=== PATIENT | male | born 1945 | race Caucasian/White ===

== ENCOUNTER 2017-03-09 09:27 | Emergency (ER) | payer MEDICARE, OTHER ==
[~2017-03-09] VITALS: Ht 177.8 cm; Wt 117.9 kg
[2017-03-09 10:30] VITALS: BP 124/90
[2017-03-09] MEDS ORDERED: TETANUS-DIPTH-ACEL PERTUSSIS 0.5ML SYRG IM ONE (10:45)
[2017-03-09] MEDS ORDERED: LIDOCAINE 1% HCL (LOCAL ANESTH.) INJ 20ML MDV IJ ONE (11:00)
[2017-03-09] MEDS ORDERED: BACITRACIN TOP OINT 1 UD PKG TOP ONE (11:45)
== END 2017-03-09 11:55 | disposition home or self-care (01) ==
LOC: ER 09:27
DX: S90.811A Abrasion, right foot, initial encounter (principal); W04.XXXA Fall while being carried or supported by other persons, initial encounter; Y93.89 Activity, other specified; Y99.8 Other external cause status; Y92.89 Other specified places as the place of occurrence of the external cause; Z23 Encounter for immunization
CPT/HCPCS: 73630; 90471; 90715

== ENCOUNTER 2017-08-23 22:03 | Inpatient (IN) | payer MEDICARE, OTHER ==
[~2017-08-23] VITALS: Ht 182.9 cm; Wt 101.6 kg
[2017-08-23] MEDS ORDERED: SODIUM CHLORIDE 0.9% 500 ML IV ONE (22:51)
[2017-08-23 23:24] LABS: Basophils # (auto) 0.1 uL; Basophils % (auto) 0.5 % (0.0-2.0); Eosinophils # (auto) 0 uL; Hematocrit 36.9 % (41.0-53.0); Hemoglobin 12.7 g/dL (13.5-17.5); Lymphocytes % (auto) 5.3 % (10.0-50.0); Mean Corpuscular Hemoglobin 31.6 pg (28.0-32.0); Mean Corpuscular Hgb Conc. 34.5 g/dL (32.0-36.0); Mean Corpuscular Volume 91.5 fL (80.0-100.0); Monocytes % (auto) 10.2 % (0.0-12.0); Neutrophils # (auto) 16.4 uL; Nucleated Red Blood Cells % 0.1 %; Platelet Count (auto) 227 10^3/uL (140-450); Red Blood Cells 4.03 10^6/uL (4.5-5.90); Red Cell Distribution Width 14.7 % (11.8-14.3); White Blood Cell 19.5 10^3/uL (4.4-10.8)
[2017-08-23 23:53] LABS: Albumin 3.2 g/dL (3.4-5.0); BUN/Creatinine Ratio 11.6; Bilirubin, Total 0.7 mg/dL (0.2-1.0); Calcium 9.2 mg/dL (8.5-10.1); Potassium 4.1 mmol/L (3.5-5.1); Total Protein 8.3 g/dL (6.4-8.2)
[2017-08-24] MEDS ORDERED: NALBUPHINE HCL 10 MG/1ml INJECTION IV ONE (01:00)
[2017-08-24] MEDS ORDERED: ONDANSETRON HCL 4 MG/2 ML VIAL IV ONE (01:00)
[2017-08-24 07:57] LABS: Alcohol, Urine < 3.0 mg/dL (0-5); Amphetamine Screen, Urine NEGATIVE (NEGATIVE); Barbiturate Scree,Urine NEGATIVE (NEGATIVE); Benzodiazephine Screen, Urine NEGATIVE (NEGATIVE); Cannabinoid Screen, Urine NEGATIVE (NEGATIVE); Cocaine Screen, Urine NEGATIVE (NEGATIVE); Opiate Scree,Urine NEGATIVE (NEGATIVE); Phencyclidine Screen, Urine NEGATIVE (NEGATIVE)
[2017-08-24] MEDS ORDERED: NALBUPHINE HCL 10 MG/1ml INJECTION IV PRN (09:00)
[2017-08-24] MEDS ORDERED: NITROGLYCERIN 0.4 MG SL TAB SL PRN (09:15)
[2017-08-24] MEDS ORDERED: DEXTROSE (50%) 50ML SYRG IV PRN (09:15)
[2017-08-24] MEDS ORDERED: DOCUSATE SOD 100 MG CAP PO PRN (09:15)
[2017-08-24] MEDS ORDERED: MORPHINE SULFATE 4 MG/ML SYR/VIAL IV PRN (09:15)
[2017-08-24] MEDS ORDERED: ONDANSETRON HCL 4 MG/2 ML VIAL IV PRN (09:15)
[2017-08-24] MEDS ORDERED: TEMAZEPAM 15 MG CAP PO PRN (09:15)
[2017-08-24] MEDS ORDERED: InsuLIN REG 1unit/0.01ml Soln (100units/ml) IV ONE (09:15)
[2017-08-24] MEDS ORDERED: ACETAMINOPHEN 325 MG TAB PO PRN (09:15)
[2017-08-24] MEDS: FAMOTIDINE 20 MG TAB PO SCH (10:17)
[2017-08-24] MEDS: MULTIPLE VITAMIN TAB PO SCH (10:18)
[2017-08-24] MEDS: SODIUM CHLORIDE 0.9% 1,000 ML IV SCH (10:18)
[2017-08-24 10:33] LABS: Urine Bacteria MOD /hpf (None Seen); Urine Blood 1+ /uL (Negative); Urine Specific Gravity 1.014 (1.001-1.035); Urine WBC 2567 /hpf (0 - 3)
[2017-08-24 10:38] LABS: Protein, Urine 114.1 mg/dL (0.0-11.9)
[2017-08-24] MEDS: InsuLIN REG 1unit/0.01ml Soln (100units/ml) SC SCH ×3 (11:30→22:10)
[2017-08-24 12:00] VITALS: BP 158/69
[2017-08-24] MEDS: ACCU-CHEK COMFORT CURVE STRIP VI SCH ×3 (12:26→22:09)
[2017-08-24] MEDS: Boost Glucose Control 8 Ounces PO SCH ×2 (12:27→19:07)
[2017-08-24 17:00] VITALS: BP 160/88
[2017-08-24] MEDS ORDERED: LABETALOL HCL 5 MG/ML ML 20ML VIAL IV PRN (17:00)
[2017-08-24] MEDS: LABETALOL HCL 5 MG/ML ML 20ML VIAL IV PRN ×2 (17:15→19:55)
[2017-08-24] MEDS ORDERED: LORazepam 2MG/ML-1ML VIAL IV PRN (18:30)
[2017-08-24 20:00] VITALS: BP 157/87
[2017-08-24] MEDS ORDERED: cefTRIAXone 1GM/10ml IVPUSH 10 ML IV ONE (21:15)
[2017-08-24 22:00] VITALS: BP 116/57
[2017-08-24] MEDS: HYDROcodone-ACET 5/325MG TAB PO PRN (23:30)
[2017-08-25] MEDS ORDERED: ACETAMINOPHEN 325 MG TAB PO PRN ×3 (04:30→04:45)
[2017-08-25] MEDS: SODIUM CHLORIDE 0.9% 1,000 ML IV SCH (06:02)
[2017-08-25] MEDS: InsuLIN REG 1unit/0.01ml Soln (100units/ml) SC SCH ×4 (06:55→22:33)
[2017-08-25] MEDS: ACCU-CHEK COMFORT CURVE STRIP VI SCH ×4 (06:55→22:00)
[2017-08-25] MEDS: LABETALOL HCL 5 MG/ML ML 20ML VIAL IV PRN (06:56)
[2017-08-25 07:10] LABS: Basophils # (auto) 0 uL; Basophils % (auto) 0.2 % (0.0-2.0); Eosinophils # (auto) 0 uL; Hematocrit 31.7 % (41.0-53.0); Hemoglobin 10.9 g/dL (13.5-17.5); Lymphocytes # (auto) 0.5 uL; Lymphocytes % (auto) 4.2 % (10.0-50.0); Mean Corpuscular Hemoglobin 31.4 pg (28.0-32.0); Mean Corpuscular Hgb Conc. 34.3 g/dL (32.0-36.0); Mean Corpuscular Volume 91.4 fL (80.0-100.0); Monocytes # (auto) 1.4 uL; Monocytes % (auto) 10.9 % (0.0-12.0); Neutrophils # (auto) 11.1 uL; Neutrophils % (auto) 84.7 % (37.0-80.0); Platelet Count (auto) 187 10^3/uL (140-450); Red Blood Cells 3.46 10^6/uL (4.5-5.90); Red Cell Distribution Width 14.3 % (11.8-14.3); White Blood Cell 13.1 10^3/uL (4.4-10.8)
[2017-08-25 07:42] LABS: Albumin 2.5 g/dL (3.4-5.0); BUN/Creatinine Ratio 12.5; Bilirubin, Total 0.5 mg/dL (0.2-1.0); Calcium 8.4 mg/dL (8.5-10.1); Phosphorus 3.3 mg/dL (2.5-4.90); Total Protein 7.1 g/dL (6.4-8.2); Uric Acid 8.3 mg/dL (3.5-7.2)
[2017-08-25 09:02] VITALS: BP 129/70
[2017-08-25] MEDS: FAMOTIDINE 20 MG TAB PO SCH (10:00)
[2017-08-25] MEDS: Boost Glucose Control 8 Ounces PO SCH ×3 (11:11→18:18)
[2017-08-25] MEDS: SODIUM BICARBONATE 50ML VIAL 50 ML in SOD CHL 0.45% 1,000 ML IV SCH ×2 (11:12→18:19)
[2017-08-25] MEDS: MULTIPLE VITAMIN TAB PO SCH (11:12)
[2017-08-25] MEDS: cefTRIAXone 1GM/10ml IVPUSH 10 ML IV SCH (11:12)
[2017-08-25 12:45] VITALS: BP 145/77
[2017-08-25 16:39] VITALS: BP 165/73
[2017-08-25] MEDS: TAMSULOSIN HYDROCHLORIDE 0.4 MG CAP PO SCH (17:05)
[2017-08-25] MEDS: HYDROcodone-ACET 5/325MG TAB PO PRN (22:33)
[2017-08-26] MEDS: SODIUM BICARBONATE 50ML VIAL 50 ML in SOD CHL 0.45% 1,000 ML IV SCH ×3 (05:53→20:06)
[2017-08-26] MEDS: ACCU-CHEK COMFORT CURVE STRIP VI SCH ×4 (05:53→21:24)
[2017-08-26] MEDS: InsuLIN REG 1unit/0.01ml Soln (100units/ml) SC SCH ×4 (06:04→21:24)
[2017-08-26 09:00] VITALS: BP 151/67
[2017-08-26 09:55] LABS: INR 1.05 (0.9-1.15); Prothrombin Time 11.4 sec (9.37-12.3)
[2017-08-26] MEDS: Boost Glucose Control 8 Ounces PO SCH ×3 (10:14→17:23)
[2017-08-26] MEDS: cefTRIAXone 1GM/10ml IVPUSH 10 ML IV SCH (10:15)
[2017-08-26] MEDS: MULTIPLE VITAMIN TAB PO SCH (10:15)
[2017-08-26] MEDS: amLODIPine BESYLATE 5 MG TAB PO SCH (10:16)
[2017-08-26] MEDS: FAMOTIDINE 20 MG TAB PO SCH (10:16)
[2017-08-26 13:00] VITALS: BP 166/79
[2017-08-26 17:00] VITALS: BP 161/86
[2017-08-26] MEDS: TAMSULOSIN HYDROCHLORIDE 0.4 MG CAP PO SCH (17:23)
[2017-08-26] MEDS: HYDROcodone-ACET 5/325MG TAB PO PRN (17:25)
[2017-08-26] MEDS: LABETALOL HCL 5 MG/ML ML 20ML VIAL IV PRN (17:57)
[2017-08-26 19:35] LABS: Protein, CSF 48.2 mg/dL (15-45)
[2017-08-26 20:55] LABS: CSF White Blood Cells 0 CUMM (0-5)
[2017-08-26 22:00] VITALS: BP 137/89
[2017-08-27] MEDS: SODIUM BICARBONATE 50ML VIAL 50 ML in SOD CHL 0.45% 1,000 ML IV SCH ×3 (00:54→20:06)
[2017-08-27 05:30] VITALS: BP 149/78
[2017-08-27] MEDS: ACCU-CHEK COMFORT CURVE STRIP VI SCH ×4 (06:16→22:00)
[2017-08-27] MEDS: InsuLIN REG 1unit/0.01ml Soln (100units/ml) SC SCH ×4 (06:20→22:00)
[2017-08-27 07:12] LABS: Basophils # (auto) 0 uL; Basophils % (auto) 0.4 % (0.0-2.0); Eosinophils # (auto) 0.2 uL; Eosinophils % (auto) 1.8 % (0.0-7.0); Hematocrit 33.2 % (41.0-53.0); Hemoglobin 11.5 g/dL (13.5-17.5); Lymphocytes % (auto) 9.5 % (10.0-50.0); Mean Corpuscular Hemoglobin 31.5 pg (28.0-32.0); Mean Corpuscular Hgb Conc. 34.8 g/dL (32.0-36.0); Mean Corpuscular Volume 90.5 fL (80.0-100.0); Monocytes % (auto) 9.5 % (0.0-12.0); Neutrophils # (auto) 8.1 uL; Neutrophils % (auto) 78.8 % (37.0-80.0); Platelet Count (auto) 228 10^3/uL (140-450); Red Blood Cells 3.67 10^6/uL (4.5-5.90); Red Cell Distribution Width 14.2 % (11.8-14.3); White Blood Cell 10.3 10^3/uL (4.4-10.8)
[2017-08-27 07:30] LABS: Albumin 2.4 g/dL (3.4-5.0); BUN/Creatinine Ratio 15.6; Bilirubin, Total 0.4 mg/dL (0.2-1.0); Calcium 8.7 mg/dL (8.5-10.1); Total Protein 7.3 g/dL (6.4-8.2)
[2017-08-27 09:00] VITALS: BP 119/48
[2017-08-27] MEDS: FAMOTIDINE 20 MG TAB PO SCH (09:21)
[2017-08-27] MEDS: MULTIPLE VITAMIN TAB PO SCH (09:21)
[2017-08-27] MEDS: amLODIPine BESYLATE 5 MG TAB PO SCH (09:23)
[2017-08-27] MEDS: cefTRIAXone 1GM/10ml IVPUSH 10 ML IV SCH (09:26)
[2017-08-27] MEDS: Boost Glucose Control 8 Ounces PO SCH ×3 (09:27→18:00)
[2017-08-27 13:00] VITALS: BP 144/84
[2017-08-27 17:00] VITALS: BP 149/86
[2017-08-27] MEDS: TAMSULOSIN HYDROCHLORIDE 0.4 MG CAP PO SCH (17:53)
[2017-08-27 23:36] VITALS: BP 131/63
[2017-08-28 04:49] VITALS: BP 128/80
[2017-08-28] MEDS: SODIUM BICARBONATE 50ML VIAL 50 ML in SOD CHL 0.45% 1,000 ML IV SCH ×2 (05:13→14:06)
[2017-08-28] MEDS: ACCU-CHEK COMFORT CURVE STRIP VI SCH ×2 (06:02→11:41)
[2017-08-28] MEDS: InsuLIN REG 1unit/0.01ml Soln (100units/ml) SC SCH ×2 (06:07→11:42)
[2017-08-28 08:00] VITALS: BP 139/81
[2017-08-28] MEDS: Boost Glucose Control 8 Ounces PO SCH ×2 (08:00→12:00)
[2017-08-28] MEDS: cefTRIAXone 1GM/10ml IVPUSH 10 ML IV SCH (09:00)
[2017-08-28] MEDS: MULTIPLE VITAMIN TAB PO SCH (09:58)
[2017-08-28] MEDS: FAMOTIDINE 20 MG TAB PO SCH (09:58)
[2017-08-28] MEDS: amLODIPine BESYLATE 5 MG TAB PO SCH (09:59)
[2017-08-28 11:32] VITALS: BP 139/81
[2017-08-28 12:00] VITALS: BP 161/87
[2017-08-28] MEDS ORDERED: INSULIN LANTUS (GLARGINE) 1 /0.01ml (100units/ml) SC SCH (22:00)
== END 2017-08-28 14:55 | disposition home health service (06) | DRG 871 ==
LOC: ER 22:03 → EDBD 22:03 → TELE 22:04 → TELE-EAST 08-24 11:09
PROVIDERS: ADMIT Internal Medicine; ATTEND Internal Medicine Pulmonary Disease
DX: A41.9 Sepsis, unspecified organism (principal); E11.10 Type 2 diabetes mellitus with ketoacidosis without coma; N17.0 Acute kidney failure with tubular necrosis; G93.41 Metabolic encephalopathy; E44.0 Moderate protein-calorie malnutrition; I13.0 Hypertensive heart and chronic kidney disease with heart failure and stage 1 through stage 4 chronic kidney disease, or unspecified chronic kidney disease; E87.1 Hypo-osmolality and hyponatremia; N39.0 Urinary tract infection, site not specified; N13.30 Unspecified hydronephrosis; N18.4 Chronic kidney disease, stage 4 (severe); D63.8 Anemia in other chronic diseases classified elsewhere; E11.21 Type 2 diabetes mellitus with diabetic nephropathy; E11.22 Type 2 diabetes mellitus with diabetic chronic kidney disease; E86.9 Volume depletion, unspecified; N40.0 Benign prostatic hyperplasia without lower urinary tract symptoms; E66.9 Obesity, unspecified; I50.9 Heart failure, unspecified; F17.200 Nicotine dependence, unspecified, uncomplicated; Z79.899 Other long term (current) drug therapy; Z82.3 Family history of stroke; Z82.49 Family history of ischemic heart disease and other diseases of the circulatory system; Z68.30 Body mass index [BMI] 30.0-30.9, adult
CPT/HCPCS: 36415; 36600; 70450; 70551; 71045; 76775; 80053; 80307; 81001; 82010; 82306; 82570; 82805; 82945; 82962; 83036; 83605; 83735; 83880; 83970; 84100; 84154; 84156; 84157; 84300; 84443; 84484; 84550; 85025; 85610; 85652; 86038; 87040; 87070; 87086; 87088; 87186; 87205; 87529; 87899; 89051; 93005; 93306; 94761; 95819; 96361; 96374; 96375; J1815; J2405

== ENCOUNTER → 2017-11-12 | Outpatient (CLI) | payer MEDICARE, OTHER ==
[2017-11-12 11:09] LABS: Basophils # (auto) 0.1 uL; Basophils % (auto) 0.9 % (0.0-2.0); Eosinophils # (auto) 0.2 uL; Eosinophils % (auto) 2.2 % (0.0-7.0); Hematocrit 38.6 % (41.0-53.0); Hemoglobin 13.3 g/dL (13.5-17.5); Lymphocytes # (auto) 2.1 uL; Lymphocytes % (auto) 25.3 % (10.0-50.0); Mean Corpuscular Hemoglobin 31.8 pg (28.0-32.0); Mean Corpuscular Hgb Conc. 34.5 g/dL (32.0-36.0); Mean Corpuscular Volume 92.4 fL (80.0-100.0); Monocytes # (auto) 0.7 uL; Monocytes % (auto) 8.8 % (0.0-12.0); Neutrophils # (auto) 5.1 uL; Neutrophils % (auto) 62.8 % (37.0-80.0); Platelet Count (auto) 208 10^3/uL (140-450); Red Blood Cells 4.18 10^6/uL (4.5-5.90); Red Cell Distribution Width 14.5 % (11.8-14.3); White Blood Cell 8.1 10^3/uL (4.4-10.8)
[2017-11-12 11:18] LABS: Urine Bacteria FEW /hpf (None Seen); Urine Blood Negative /uL (Negative); Urine WBC 20 /hpf (0 - 3)
[2017-11-12 11:36] LABS: Albumin 3.7 g/dL (3.4-5.0); BUN/Creatinine Ratio 15.4; Bilirubin, Total 0.4 mg/dL (0.2-1.0); Calcium 9.2 mg/dL (8.5-10.1); Potassium 4.6 mmol/L (3.5-5.1); Total Protein 7.8 g/dL (6.4-8.2)
== END | disposition home or self-care (01) ==
LOC: LAB 10:44
PROVIDERS: ATTEND Nurse Practitioner
DX: E11.22 Type 2 diabetes mellitus with diabetic chronic kidney disease (principal); I13.0 Hypertensive heart and chronic kidney disease with heart failure and stage 1 through stage 4 chronic kidney disease, or unspecified chronic kidney disease; N18.4 Chronic kidney disease, stage 4 (severe); Z79.899 Other long term (current) drug therapy
CPT/HCPCS: 36415; 80053; 80061; 81001; 82043; 82306; 83036; 85025

== ENCOUNTER 2018-01-03 07:45 | Inpatient (IN) | payer MEDICARE, OTHER ==
[2017-12-30 10:29] LABS: Urine Bacteria NONE SEEN /hpf (None Seen); Urine Blood Negative /uL (Negative); Urine Specific Gravity 1.012 (1.001-1.035); Urine WBC 30 /hpf (0 - 3)
[2017-12-30 10:31] LABS: Albumin 3.6 g/dL (3.4-5.0); BUN/Creatinine Ratio 17.9; Calcium 8.7 mg/dL (8.5-10.1); Potassium 4.2 mmol/L (3.5-5.1)
[2017-12-30 10:42] LABS: Bilirubin, Total 0.4 mg/dL (0.2-1.0); INR 1.01 (0.9-1.15); Prothrombin Time 10.8 sec (9.27-12.13); Total Protein 7.8 g/dL (6.4-8.2)
[2017-12-30 10:56] LABS: Basophils # (auto) 0.1 uL; Basophils % (auto) 0.6 % (0.0-2.0); Eosinophils # (auto) 0.2 uL; Eosinophils % (auto) 2.1 % (0.0-7.0); Hematocrit 40.2 % (41.0-53.0); Lymphocytes # (auto) 1.8 uL; Lymphocytes % (auto) 20.4 % (10.0-50.0); Mean Corpuscular Hemoglobin 31.3 pg (28.0-32.0); Mean Corpuscular Hgb Conc. 34.7 g/dL (32.0-36.0); Mean Corpuscular Volume 90.3 fL (80.0-100.0); Monocytes # (auto) 0.8 uL; Neutrophils # (auto) 5.9 uL; Neutrophils % (auto) 67.9 % (37.0-80.0); Platelet Count (auto) 199 10^3/uL (140-450); Red Blood Cells 4.46 10^6/uL (4.5-5.90); Red Cell Distribution Width 13.1 % (11.8-14.3); White Blood Cell 8.8 10^3/uL (4.4-10.8)
[~2018-01-03] VITALS: Ht 177.8 cm; Wt 102.3 kg
[~2018-01-03 07:45] MED LIST: AML5T PO; INSDRIP SC; INSLANTI SC; TAM04C PO
[2018-01-03] MEDS ORDERED: fentaNYL CITRATE 100 MCG/2 ML VL ONE (10:26)
[2018-01-03] MEDS ORDERED: PROPOFOL 10 MG/ML 20 ML IV ONE (10:27)
[2018-01-03] MEDS ORDERED: ROCURONIUM 10MG/ML 10ML VIAL IV ONE (10:30)
[2018-01-03] MEDS ORDERED: METHYLENE BLUE 0.5% 5MG/ML 10ml AMP IV ONE (11:01)
[2018-01-03] MEDS ORDERED: hydrALAZINE HCL 20 MG/ML VL IV PRN (12:15)
[2018-01-03] MEDS ORDERED: ePHEDrine SULFATE 50 MG/ML AMP IV PRN (12:15)
[2018-01-03] MEDS ORDERED: ONDANSETRON HCL 4 MG/2 ML VIAL IV ONE (12:15)
[2018-01-03] MEDS ORDERED: HYDROmorphone HCL 2 MG/ML VL IV PRN (12:15)
[2018-01-03] MEDS ORDERED: NITROGLYCERIN 0.4 MG SL TAB SL PRN (14:45)
[2018-01-03] MEDS ORDERED: MORPHINE SULFATE 4 MG/ML SYR/VIAL IV PRN (14:45)
[2018-01-03 17:49] VITALS: BP 139/71
[2018-01-03 20:00] VITALS: BP 152/85
[2018-01-03 22:00] VITALS: BP 152/85
[2018-01-04 05:12] VITALS: BP 123/60
[2018-01-04 08:00] VITALS: BP 156/75
[2018-01-04] MEDS ORDERED: ceFAZolin 1GM VL IV ONE (10:20)
[2018-01-04 12:00] VITALS: BP 134/72
[2018-01-04 16:00] VITALS: BP 153/84
[2018-01-04 17:41] VITALS: BP 153/84
== END 2018-01-04 19:10 | disposition home or self-care (01) | DRG 713 ==
LOC: SUR 07:45 → CENTRAL 07:46
PROVIDERS: ADMIT Urology; ATTEND Urology
PROC: 0VB08ZZ Excision of Prostate, Via Natural or Artificial Opening Endoscopic (ICD-10-PCS; principal; 2018-01-03 10:20)
DX: N40.1 Benign prostatic hyperplasia with lower urinary tract symptoms (principal); N39.0 Urinary tract infection, site not specified; R33.8 Other retention of urine
CPT/HCPCS: 36415; 80053; 81001; 82962; 85025; 85610; 85730; J0690; J2704

== ENCOUNTER → 2018-04-18 | Outpatient (CLI) | payer MEDICARE, OTHER ==
[2018-04-18 10:10] LABS: Basophils # (auto) 0 uL; Basophils % (auto) 0.5 % (0.0-2.0); Eosinophils # (auto) 0.2 uL; Eosinophils % (auto) 2.2 % (0.0-7.0); Hematocrit 42.3 % (41.0-53.0); Hemoglobin 14.9 g/dL (13.5-17.5); Lymphocytes # (auto) 1.7 uL; Lymphocytes % (auto) 21.5 % (10.0-50.0); Mean Corpuscular Hemoglobin 32.1 pg (28.0-32.0); Mean Corpuscular Hgb Conc. 35.1 g/dL (32.0-36.0); Mean Corpuscular Volume 91.3 fL (80.0-100.0); Monocytes # (auto) 0.7 uL; Monocytes % (auto) 9.3 % (0.0-12.0); Neutrophils # (auto) 5.2 uL; Neutrophils % (auto) 66.5 % (37.0-80.0); Nucleated Red Blood Cells % 0.2 %; Platelet Count (auto) 165 10^3/uL (140-450); Red Blood Cells 4.63 10^6/uL (4.5-5.90); Red Cell Distribution Width 14.2 % (11.8-14.3); White Blood Cell 7.9 10^3/uL (4.4-10.8)
[2018-04-18 10:25] LABS: Urine Bacteria MOD /hpf (None Seen); Urine Blood Negative /uL (Negative); Urine Specific Gravity 1.012 (1.001-1.035); Urine WBC 44 /hpf (0 - 3); Urine WBC Clumps PRESENT /hpf (None Seen)
[2018-04-18 10:34] LABS: Albumin 3.6 g/dL (3.4-5.0); Calcium 9.4 mg/dL (8.5-10.1); Potassium 4.9 mmol/L (3.5-5.1)
[2018-04-18 10:39] LABS: BUN/Creatinine Ratio 14.4; Bilirubin, Total 0.6 mg/dL (0.2-1.0)
== END | disposition home or self-care (01) ==
LOC: LAB 08:31
PROVIDERS: ATTEND Nurse Practitioner
DX: E11.9 Type 2 diabetes mellitus without complications (principal); N40.0 Benign prostatic hyperplasia without lower urinary tract symptoms; R97.20 Elevated prostate specific antigen [PSA]
CPT/HCPCS: 36415; 80053; 80061; 81001; 82043; 83036; 85025

== ENCOUNTER → 2018-07-18 | Outpatient (CLI) | payer MEDICARE, OTHER | END | disposition home or self-care (01) | LOC: LAB 09:18 | PROVIDERS: ATTEND Urology | DX: N40.0 Benign prostatic hyperplasia without lower urinary tract symptoms (principal); R97.20 Elevated prostate specific antigen [PSA] | CPT/HCPCS: 84153; 84154 ==

== ENCOUNTER → 2018-10-13 | Outpatient (CLI) | payer MEDICARE, OTHER ==
[2018-10-13 13:34] LABS: Urine Bacteria NONE SEEN /hpf (None Seen); Urine Blood Negative /uL (Negative); Urine Specific Gravity 1.016 (1.001-1.035); Urine Sperm PRESENT /hpf (None Seen); Urine WBC 1 /hpf (0 - 3)
[2018-10-13 13:41] LABS: Basophils # (auto) 0.1 uL; Basophils % (auto) 0.7 % (0.0-2.0); Eosinophils # (auto) 0.2 uL; Eosinophils % (auto) 2.3 % (0.0-7.0); Hematocrit 41.3 % (41.0-53.0); Hemoglobin 14.4 g/dL (13.5-17.5); Lymphocytes # (auto) 1.7 uL; Lymphocytes % (auto) 21.9 % (10.0-50.0); Mean Corpuscular Hemoglobin 31.5 pg (28.0-32.0); Mean Corpuscular Hgb Conc. 34.9 g/dL (32.0-36.0); Mean Corpuscular Volume 90.1 fL (80.0-100.0); Monocytes # (auto) 0.7 uL; Monocytes % (auto) 8.9 % (0.0-12.0); Neutrophils # (auto) 5.2 uL; Neutrophils % (auto) 66.2 % (37.0-80.0); Nucleated Red Blood Cells % 0.1 %; Platelet Count (auto) 164 10^3/uL (140-450); Red Blood Cells 4.58 10^6/uL (4.5-5.90); Red Cell Distribution Width 13.9 % (11.8-14.3); White Blood Cell 7.9 10^3/uL (4.4-10.8)
[2018-10-13 14:17] LABS: Albumin 3.6 g/dL (3.4-5.0); Calcium 8.7 mg/dL (8.5-10.1)
[2018-10-13 14:21] LABS: BUN/Creatinine Ratio 12.8; Bilirubin, Total 0.6 mg/dL (0.2-1.0); Total Protein 7.4 g/dL (6.4-8.2)
== END | disposition home or self-care (01) ==
LOC: LAB 13:03
PROVIDERS: ATTEND Nurse Practitioner
DX: E78.5 Hyperlipidemia, unspecified (principal); E11.29 Type 2 diabetes mellitus with other diabetic kidney complication
CPT/HCPCS: 36415; 80053; 80061; 81001; 82043; 83036; 84443; 85025

== ENCOUNTER → 2019-02-17 | Outpatient (CLI) | payer MEDICARE, OTHER ==
[2019-02-17 09:28] LABS: Basophils # (auto) 0.1 uL; Basophils % (auto) 0.8 % (0.0-2.0); Eosinophils # (auto) 0.2 uL; Eosinophils % (auto) 3.2 % (0.0-7.0); Hematocrit 42.9 % (41.0-53.0); Lymphocytes # (auto) 1.9 uL; Lymphocytes % (auto) 25.9 % (10.0-50.0); Mean Corpuscular Hemoglobin 31.9 pg (28.0-32.0); Mean Corpuscular Hgb Conc. 34.9 g/dL (32.0-36.0); Mean Corpuscular Volume 91.4 fL (80.0-100.0); Monocytes # (auto) 0.7 uL; Neutrophils # (auto) 4.5 uL; Neutrophils % (auto) 61.1 % (37.0-80.0); Nucleated Red Blood Cells % 0.1 %; Platelet Count (auto) 159 10^3/uL (140-450); Red Blood Cells 4.69 10^6/uL (4.5-5.90); Red Cell Distribution Width 14.5 % (11.8-14.3); White Blood Cell 7.4 10^3/uL (4.4-10.8)
[2019-02-17 10:44] LABS: Cholesterol 165 mg/dL (< 200); HDL Cholesterol 33 mg/dL (40-59); LDL Cholesterol 117 mg/dL (< 100); Triglycerides 124 mg/dL (< 150)
== END | disposition home or self-care (01) ==
LOC: LAB 09:01
PROVIDERS: ATTEND Nurse Practitioner
DX: E11.9 Type 2 diabetes mellitus without complications (principal); E78.5 Hyperlipidemia, unspecified
CPT/HCPCS: 36415; 80061; 83036; 85025

== ENCOUNTER → 2019-06-16 | Outpatient (CLI) | payer MEDICARE, OTHER ==
[2019-06-16 09:39] LABS: Basophils # (auto) 0.1 uL; Basophils % (auto) 0.7 % (0.0-2.0); Eosinophils # (auto) 0.2 uL; Eosinophils % (auto) 2.1 % (0.0-7.0); Hematocrit 47.7 % (41.0-53.0); Hemoglobin 16.7 g/dL (13.5-17.5); Lymphocytes # (auto) 1.9 uL; Lymphocytes % (auto) 22.1 % (10.0-50.0); Mean Corpuscular Hemoglobin 31.4 pg (28.0-32.0); Mean Corpuscular Hgb Conc. 35.1 g/dL (32.0-36.0); Mean Corpuscular Volume 89.5 fL (80.0-100.0); Monocytes # (auto) 0.7 uL; Monocytes % (auto) 8.1 % (0.0-12.0); Neutrophils # (auto) 5.8 uL; Nucleated Red Blood Cells % 0.5 %; Platelet Count (auto) 174 10^3/uL (140-450); Red Blood Cells 5.32 10^6/uL (4.5-5.90); Red Cell Distribution Width 14.2 % (11.8-14.3); White Blood Cell 8.6 10^3/uL (4.4-10.8)
[2019-06-16 09:47] LABS: Urine Bacteria NONE SEEN /hpf (None Seen); Urine Blood TRACE /uL (Negative); Urine Specific Gravity 1.019 (1.001-1.035); Urine WBC 1 /hpf (0 - 3)
[2019-06-16 10:15] LABS: Albumin 3.7 g/dL (3.4-5.0); Calcium 9.1 mg/dL (8.5-10.1); Potassium 4.2 mmol/L (3.5-5.1)
[2019-06-16 10:21] LABS: BUN/Creatinine Ratio 16.7; Bilirubin, Total 0.7 mg/dL (0.2-1.0); Total Protein 7.8 g/dL (6.4-8.2)
== END | disposition home or self-care (01) ==
LOC: LAB 08:58
PROVIDERS: ATTEND Nurse Practitioner
DX: E78.5 Hyperlipidemia, unspecified (principal); E11.9 Type 2 diabetes mellitus without complications
CPT/HCPCS: 36415; 80053; 80061; 81001; 82043; 83036; 84443; 85025

== ENCOUNTER → 2020-02-21 | Outpatient (CLI) | payer MEDICARE, OTHER ==
[2020-02-21 10:28] LABS: Urine Bacteria NONE SEEN /hpf (None Seen); Urine Blood 1+ /uL (Negative); Urine Specific Gravity 1.019 (1.001-1.035); Urine WBC 1 /hpf (0 - 3)
[2020-02-21 10:30] LABS: Basophils # (auto) 0.1 10 ^3/uL (0-0.2); Basophils % (auto) 0.8 % (0.0-2.0); Eosinophils # (auto) 0.2 10 ^3/uL (0-0.8); Eosinophils % (auto) 2.2 % (0.0-7.0); Hematocrit 45.1 % (41.0-53.0); Hemoglobin 15.4 g/dL (13.5-17.5); Lymphocytes # (auto) 1.9 10 ^3/uL (0.4-5.4); Lymphocytes % (auto) 22.3 % (10.0-50.0); Mean Corpuscular Hemoglobin 30.8 pg (28.0-32.0); Mean Corpuscular Hgb Conc. 34.2 g/dL (32.0-36.0); Mean Corpuscular Volume 90.1 fL (80.0-100.0); Monocytes # (auto) 0.9 10 ^3/uL (0-1.3); Monocytes % (auto) 9.8 % (0.0-12.0); Neutrophils # (auto) 5.6 10 ^3/uL (1.6-8.6); Neutrophils % (auto) 64.9 % (37.0-80.0); Nucleated Red Blood Cells % 0.3 %; Platelet Count (auto) 165 10^3/uL (140-450); Red Cell Distribution Width 14.4 % (11.8-14.3); White Blood Cell 8.7 10^3/uL (4.4-10.8)
[2020-02-21 10:42] LABS: Albumin 3.3 g/dL (3.4-5.0); Potassium 4.1 mmol/L (3.5-5.1)
[2020-02-21 10:46] LABS: BUN/Creatinine Ratio 13.3; Bilirubin, Total 0.6 mg/dL (0.2-1.0); Total Protein 7.3 g/dL (6.4-8.2)
== END | disposition home or self-care (01) ==
LOC: LAB 10:08
PROVIDERS: ATTEND Family Medicine
DX: I13.0 Hypertensive heart and chronic kidney disease with heart failure and stage 1 through stage 4 chronic kidney disease, or unspecified chronic kidney disease (principal); I50.9 Heart failure, unspecified; N18.4 Chronic kidney disease, stage 4 (severe); N40.0 Benign prostatic hyperplasia without lower urinary tract symptoms; R97.20 Elevated prostate specific antigen [PSA]
CPT/HCPCS: 36415; 80053; 80061; 81001; 83036; 84153; 84154; 84443; 85025

== ENCOUNTER → 2020-06-10 | Outpatient (CLI) | payer MEDICARE, OTHER ==
[2020-06-10 13:47] LABS: Urine Bacteria NONE SEEN /hpf (None Seen); Urine Blood 1+ /uL (Negative); Urine Hyaline Cast FEW /lpf (0 - 2); Urine Mucus FEW (None Seen); Urine Specific Gravity 1.024 (1.001-1.035); Urine WBC 1 /hpf (0 - 3)
== END | disposition home or self-care (01) ==
LOC: LAB 09:59
PROVIDERS: ATTEND Nurse Practitioner Family
DX: Z20.828 Contact with and (suspected) exposure to other viral communicable diseases (principal)
CPT/HCPCS: 81001; 87086; C9803; U0003

== ENCOUNTER 2020-06-13 15:37 | Emergency (ER) | payer MEDICARE, OTHER ==
[~2020-06-13] VITALS: Ht 177.8 cm; Wt 116.6 kg
[2020-06-13] MEDS ORDERED: SODIUM CHLORIDE 0.9% 500 ML IV ONE ×2 (17:15→18:30)
[2020-06-13 17:28] LABS: Basophils # (auto) 0.1 10 ^3/uL (0-0.2); Eosinophils # (auto) 0 10 ^3/uL (0-0.8); Eosinophils % (auto) 0.2 % (0.0-7.0); Hematocrit 44.1 % (41.0-53.0); Hemoglobin 15.8 g/dL (13.5-17.5); Lymphocytes # (auto) 0.8 10 ^3/uL (0.4-5.4); Lymphocytes % (auto) 15.6 % (10.0-50.0); Mean Corpuscular Hemoglobin 31.9 pg (28.0-32.0); Mean Corpuscular Hgb Conc. 35.8 g/dL (32.0-36.0); Mean Corpuscular Volume 88.9 fL (80.0-100.0); Monocytes # (auto) 0.8 10 ^3/uL (0-1.3); Neutrophils # (auto) 3.5 10 ^3/uL (1.6-8.6); Neutrophils % (auto) 68.2 % (37.0-80.0); Nucleated Red Blood Cells % 0.5 %; Platelet Count (auto) 105 10^3/uL (140-450); Red Blood Cells 4.96 10^6/uL (4.5-5.90); Red Cell Distribution Width 14.1 % (11.8-14.3); White Blood Cell 5.2 10^3/uL (4.4-10.8)
[2020-06-13 17:31] LABS: Albumin 3.5 g/dL (3.4-5.0); Anion Gap 10 (5-15); Blood Urea Nitrogen 39 mg/dL (7-18); Calcium 8.2 mg/dL (8.5-10.1); Carbon Dioxide 24 mmol/L (21-32); Chloride 92 mmol/L (98-107); Glucose 175 mg/dL (74-106); Potassium 3.8 mmol/L (3.5-5.1); Sodium 126 mmol/L (136-145)
[2020-06-13 17:37] LABS: Alanine Aminotransferase 36 U/L (16-61); Alkaline Phosphatase 76 U/L (45-117); Aspartate Aminotransferase 40 U/L (15-37); BUN/Creatinine Ratio 17.2; Bilirubin, Total 0.9 mg/dL (0.2-1.0); GFR African American 37 mL/min; GFR Non-African American 30 mL/min; Total Protein 8.1 g/dL (6.4-8.2)
[2020-06-13 18:48] LABS: Urine Bacteria NONE SEEN /hpf (None Seen); Urine Blood 1+ /uL (Negative); Urine Specific Gravity 1.022 (1.001-1.035); Urine WBC 1 /hpf (0 - 3)
[2020-06-13 19:30] VITALS: BP 142/76
[2020-06-13] MEDS ORDERED: ACETAMINOPHEN 500 MG TAB PO ONE (19:45)
== END 2020-06-13 21:00 | disposition home or self-care (01) ==
LOC: ER 15:37
DX: G47.00 Insomnia, unspecified (principal); E86.0 Dehydration; E11.22 Type 2 diabetes mellitus with diabetic chronic kidney disease; I12.9 Hypertensive chronic kidney disease with stage 1 through stage 4 chronic kidney disease, or unspecified chronic kidney disease; N18.9 Chronic kidney disease, unspecified
CPT/HCPCS: 36415; 71045; 80053; 81001; 84484; 85025; 96360; 96361; 99284; J7030

== ENCOUNTER 2020-06-16 10:02 | Inpatient (IN) | payer MEDICARE, OTHER ==
[~2020-06-16] VITALS: Ht 177.8 cm; Wt 103.0 kg
[2020-06-16 11:59] LABS: Basophils # (auto) 0 10 ^3/uL (0-0.2); Basophils % (auto) 0.2 % (0.0-2.0); Eosinophils # (auto) 0 10 ^3/uL (0-0.8); Hematocrit 43.7 % (41.0-53.0); Hemoglobin 15.5 g/dL (13.5-17.5); Lymphocytes # (auto) 0.4 10 ^3/uL (0.4-5.4); Lymphocytes % (auto) 5.8 % (10.0-50.0); Mean Corpuscular Hemoglobin 31.5 pg (28.0-32.0); Mean Corpuscular Hgb Conc. 35.5 g/dL (32.0-36.0); Mean Corpuscular Volume 88.6 fL (80.0-100.0); Monocytes # (auto) 0.5 10 ^3/uL (0-1.3); Monocytes % (auto) 8.8 % (0.0-12.0); Neutrophils # (auto) 5.3 10 ^3/uL (1.6-8.6); Neutrophils % (auto) 85.2 % (37.0-80.0); Nucleated Red Blood Cells % 0.3 %; Platelet Count (auto) 128 10^3/uL (140-450); Red Blood Cells 4.93 10^6/uL (4.5-5.90); White Blood Cell 6.2 10^3/uL (4.4-10.8)
[2020-06-16 12:19] LABS: Chloride 94 mmol/L (98-107); Lactic Acid w/Reflex 2.7 mmol/L (0.4-2.0); Potassium 3.9 mmol/L (3.5-5.1); Sodium 126 mmol/L (136-145)
[2020-06-16 12:30] LABS: Alanine Aminotransferase 51 U/L (16-61); Alkaline Phosphatase 67 U/L (45-117); Aspartate Aminotransferase 58 U/L (15-37); BUN/Creatinine Ratio 21.1; Blood Urea Nitrogen 41 mg/dL (7-18); Carbon Dioxide 15 mmol/L (21-32); GFR African American 44 mL/min; GFR Non-African American 36 mL/min; Total Protein 7.7 g/dL (6.4-8.2)
[2020-06-16 12:36] LABS: Glucose 303 mg/dL (74-106)
[2020-06-16 12:40] LABS: Anion Gap 17 (5-15)
[2020-06-16] MEDS ORDERED: DEXTROSE (50%) 50ML SYRG IV PRN (13:45)
[2020-06-16] MEDS ORDERED: INSULIN LANTUS (GLARGINE) 1 /0.01ml (100units/ml) SC ONE (13:45)
[2020-06-16] MEDS ORDERED: ACETAMINOPHEN 325 MG TAB PO ONE (13:45)
[2020-06-16] MEDS: ACCU-CHEK COMFORT CURVE STRIP VI SCH ×6 (14:29→22:40)
[2020-06-16] MEDS ORDERED: NITROGLYCERIN 0.4 MG SL TAB SL PRN (15:15)
[2020-06-16] MEDS ORDERED: MORPHINE SULF INJ 2 MG/ML SYRINGE 1ML IV PRN ×2 (15:15)
[2020-06-16] MEDS ORDERED: ONDANSETRON HCL 4 MG/2 ML VIAL IV PRN (15:15)
[2020-06-16] MEDS ORDERED: REMDESIVIR PER PHARMACY 0 ML IV SCH (15:15)
[2020-06-16] MEDS: InsuLIN R (HUMAN) 100 UNITS in SODIUM CHL 0.9% 99 ML IV SCH ×2 (16:22→18:05)
[2020-06-16] MEDS ORDERED: REMDESIVIR 200 MG in NS 210ml LOADING DOSE ADULT IV ONE (17:00)
[2020-06-16] MEDS ORDERED: SODIUM CHLORIDE 0.9% 500 ML IV ONE (18:15)
[2020-06-16] MEDS: BUDESONIDE (INHALATION) 180 MCG IH IN SCH (19:03)
[2020-06-16] MEDS ORDERED: SODIUM CHLORIDE 0.9% 1,000 ML IV SCH (19:45)
[2020-06-16] MEDS: ALBUTEROL SULF HFA 90MCG INH 200DOSE IN PRN (19:49)
[2020-06-16] MEDS: SODIUM CHLORIDE 0.9% 1,000 ML IV SCH (19:54)
[2020-06-16 20:53] LABS: BUN/Creatinine Ratio 18.4; Calcium 7.3 mg/dL (8.5-10.1); Potassium 3.3 mmol/L (3.5-5.1)
[2020-06-16 21:48] LABS: Magnesium 2.7 mg/dL (1.6-2.6)
[2020-06-16 21:56] LABS: CRP High Sensitivity 11.6 mg/dL (< 0.3)
[2020-06-16] MEDS: BUDESONIDE (INHALATION) 0.5 MG/2 ML NEB NEB SCH (22:00)
[2020-06-16] MEDS: ENOXAPARIN SOD 40 MG/0.4 ML SYRINGE SC SCH (22:41)
[2020-06-17] MEDS: ACCU-CHEK COMFORT CURVE STRIP VI SCH ×6 (00:20→20:16)
[2020-06-17] MEDS ORDERED: DEXTROSE (50%) 50ML SYRG IV PRN (00:45)
[2020-06-17] MEDS: SODIUM CHLORIDE 0.9% 1,000 ML IV SCH (02:46)
[2020-06-17] MEDS: InsuLIN REG 1unit/0.01ml Soln (100units/ml) SC SCH ×5 (04:14→20:26)
[2020-06-17 05:52] LABS: Basophils # (auto) 0 10 ^3/uL (0-0.2); Basophils % (auto) 0.1 % (0.0-2.0); Eosinophils # (auto) 0 10 ^3/uL (0-0.8); Hemoglobin 14.8 g/dL (13.5-17.5); Lymphocytes # (auto) 0.4 10 ^3/uL (0.4-5.4); Lymphocytes % (auto) 6.6 % (10.0-50.0); Mean Corpuscular Hgb Conc. 36.2 g/dL (32.0-36.0); Mean Corpuscular Volume 88.4 fL (80.0-100.0); Monocytes # (auto) 0.5 10 ^3/uL (0-1.3); Monocytes % (auto) 7.1 % (0.0-12.0); Neutrophils # (auto) 5.7 10 ^3/uL (1.6-8.6); Neutrophils % (auto) 86.2 % (37.0-80.0); Nucleated Red Blood Cells % 0.1 %; Platelet Count (auto) 122 10^3/uL (140-450); Red Blood Cells 4.64 10^6/uL (4.5-5.90); White Blood Cell 6.6 10^3/uL (4.4-10.8)
[2020-06-17 06:20] LABS: Potassium 3.3 mmol/L (3.5-5.1)
[2020-06-17] MEDS: ALBUTEROL SULF HFA 90MCG INH 200DOSE IN PRN (06:26)
[2020-06-17] MEDS: BUDESONIDE (INHALATION) 180 MCG IH IN SCH ×2 (06:27→22:30)
[2020-06-17 06:38] LABS: Albumin 2.6 g/dL (3.4-5.0); BUN/Creatinine Ratio 19.8; Bilirubin, Total 0.7 mg/dL (0.2-1.0); Calcium 7.4 mg/dL (8.5-10.1)
[2020-06-17] MEDS: cefTRIAXone 1GM/50ML D5W 50 ML IV SCH (08:35)
[2020-06-17] MEDS: DexAMETHasone SOD PHOS 10MG/1ML VIAL INJ IV SCH (09:44)
[2020-06-17] MEDS: AZITHROMYCIN 500MG/ 250ML 250 ML IV SCH (09:44)
[2020-06-17] MEDS: ENOXAPARIN SOD 40 MG/0.4 ML SYRINGE SC SCH ×2 (09:45→22:07)
[2020-06-17] MEDS: ZINC SULFATE 220mg CAP or TAB PO SCH (09:45)
[2020-06-17] MEDS: CHOLECALCIFEROL (VITD3) 2,000 UNIT CAP PO SCH (09:45)
[2020-06-17] MEDS: ASCORBIC ACID 1,000 MG TAB PO SCH (09:45)
[2020-06-17] MEDS: BUDESONIDE (INHALATION) 0.5 MG/2 ML NEB NEB SCH ×2 (10:00→22:30)
[2020-06-17] MEDS ORDERED: POTASSIUM EFFERVESENT TAB 25 MEQ PO ONE (10:30)
[2020-06-17] MEDS ORDERED: INSULIN LANTUS (GLARGINE) 1 /0.01ml (100units/ml) SC SCH (10:30)
[2020-06-17] MEDS: REMDESIVIR 100mg 100 MG in SODIUM CHL 0.9% 230 ML IV SCH (15:00)
[2020-06-17 20:52] VITALS: BP 138/70
[2020-06-17] MEDS ORDERED: ATOR10TA PO (21:17)
[2020-06-17] MEDS ORDERED: ASPI-543 PO (21:17)
[2020-06-18] VITALS: BP 111/58
[2020-06-18] MEDS: ACCU-CHEK COMFORT CURVE STRIP VI SCH ×7 (00:01→23:59)
[2020-06-18] MEDS: InsuLIN REG 1unit/0.01ml Soln (100units/ml) SC SCH ×6 (00:02→20:12)
[2020-06-18] MEDS: BUDESONIDE (INHALATION) 0.5 MG/2 ML NEB NEB SCH ×2 (06:22→18:37)
[2020-06-18 07:06] LABS: Potassium 3.6 mmol/L (3.5-5.1)
[2020-06-18 07:15] LABS: Albumin 2.3 g/dL (3.4-5.0); BUN/Creatinine Ratio 21.9; Bilirubin, Total 0.6 mg/dL (0.2-1.0); Calcium 7.6 mg/dL (8.5-10.1); Magnesium 3.2 mg/dL (1.6-2.6); Phosphorus 1.8 mg/dL (2.5-4.90); Total Protein 6.4 g/dL (6.4-8.2)
[2020-06-18] MEDS: ALBUTEROL SULF HFA 90MCG INH 200DOSE IN PRN ×2 (07:44→18:38)
[2020-06-18] MEDS: BUDESONIDE (INHALATION) 180 MCG IH IN SCH ×2 (07:44→07:55)
[2020-06-18 08:00] VITALS: BP 132/65
[2020-06-18] MEDS: ENOXAPARIN SOD 40 MG/0.4 ML SYRINGE SC SCH ×2 (09:30→21:42)
[2020-06-18] MEDS: cefTRIAXone 1GM/50ML D5W 50 ML IV SCH (09:30)
[2020-06-18] MEDS: CHOLECALCIFEROL (VITD3) 2,000 UNIT CAP PO SCH (09:31)
[2020-06-18] MEDS: ASCORBIC ACID 1,000 MG TAB PO SCH (09:31)
[2020-06-18] MEDS: ZINC SULFATE 220mg CAP or TAB PO SCH (09:31)
[2020-06-18] MEDS: DexAMETHasone SOD PHOS 10MG/1ML VIAL INJ IV SCH (10:00)
[2020-06-18] MEDS: INSULIN LANTUS (GLARGINE) 1 /0.01ml (100units/ml) SC SCH (10:00)
[2020-06-18] MEDS ORDERED: NEUTRA-PHOS TABLET PO ONE (10:45)
[2020-06-18] MEDS: FUROSEMIDE 40 MG/4 ML VIAL IV SCH (12:16)
[2020-06-18] MEDS: AZITHROMYCIN 500MG/ 250ML 250 ML IV SCH (12:17)
[2020-06-18] MEDS: REMDESIVIR 100mg 100 MG in SODIUM CHL 0.9% 230 ML IV SCH (15:00)
[2020-06-18 15:52] VITALS: BP 103/57
[2020-06-18 23:57] VITALS: BP 128/68
[2020-06-19] MEDS: ACCU-CHEK COMFORT CURVE STRIP VI SCH ×5 (04:00→20:39)
[2020-06-19] MEDS: InsuLIN REG 1unit/0.01ml Soln (100units/ml) SC SCH ×6 (04:00→20:41)
[2020-06-19] MEDS: BUDESONIDE (INHALATION) 180 MCG IH IN SCH ×2 (06:22→18:59)
[2020-06-19] MEDS: BUDESONIDE (INHALATION) 0.5 MG/2 ML NEB NEB SCH (06:22)
[2020-06-19 07:30] LABS: Potassium 3.2 mmol/L (3.5-5.1)
[2020-06-19 07:41] LABS: Albumin 2.4 g/dL (3.4-5.0); BUN/Creatinine Ratio 25.6; Bilirubin, Total 0.7 mg/dL (0.2-1.0); Calcium 7.6 mg/dL (8.5-10.1); Total Protein 6.6 g/dL (6.4-8.2)
[2020-06-19 08:00] VITALS: BP 127/63
[2020-06-19] MEDS: cefTRIAXone 1GM/50ML D5W 50 ML IV SCH (08:38)
[2020-06-19] MEDS: ZINC SULFATE 220mg CAP or TAB PO SCH (11:17)
[2020-06-19] MEDS: ENOXAPARIN SOD 40 MG/0.4 ML SYRINGE SC SCH ×2 (11:17→22:02)
[2020-06-19] MEDS: CHOLECALCIFEROL (VITD3) 2,000 UNIT CAP PO SCH (11:17)
[2020-06-19] MEDS: ASCORBIC ACID 1,000 MG TAB PO SCH (11:17)
[2020-06-19] MEDS: DexAMETHasone SOD PHOS 10MG/1ML VIAL INJ IV SCH (11:17)
[2020-06-19] MEDS: FUROSEMIDE 40 MG/4 ML VIAL IV SCH (11:30)
[2020-06-19] MEDS: INSULIN LANTUS (GLARGINE) 1 /0.01ml (100units/ml) SC SCH (11:34)
[2020-06-19] MEDS: AZITHROMYCIN 500MG/ 250ML 250 ML IV SCH (11:35)
[2020-06-19 14:00] VITALS: BP 102/56
[2020-06-19] MEDS ORDERED: HYDROcodone-ACET 5/325MG TAB PO PRN (15:00)
[2020-06-19] MEDS: REMDESIVIR 100mg 100 MG in SODIUM CHL 0.9% 230 ML IV SCH (15:31)
[2020-06-19 16:00] VITALS: BP 102/56
[2020-06-19] MEDS: ALBUTEROL SULF HFA 90MCG INH 200DOSE IN PRN (18:59)
[2020-06-20] VITALS: BP 90/43
[2020-06-20] MEDS: ACCU-CHEK COMFORT CURVE STRIP VI SCH ×6 (00:14→20:48)
[2020-06-20] MEDS: InsuLIN REG 1unit/0.01ml Soln (100units/ml) SC SCH ×6 (00:45→20:52)
[2020-06-20] MEDS: ALBUTEROL SULF HFA 90MCG INH 200DOSE IN PRN ×2 (06:22→21:32)
[2020-06-20] MEDS: BUDESONIDE (INHALATION) 180 MCG IH IN SCH ×2 (06:22→21:32)
[2020-06-20] MEDS: BUDESONIDE (INHALATION) 0.5 MG/2 ML NEB NEB SCH ×2 (06:22→21:32)
[2020-06-20 06:26] LABS: Potassium 3.4 mmol/L (3.5-5.1)
[2020-06-20 06:33] LABS: Albumin 2.4 g/dL (3.4-5.0); BUN/Creatinine Ratio 26.5; Bilirubin, Total 0.8 mg/dL (0.2-1.0); Calcium 7.5 mg/dL (8.5-10.1); Total Protein 6.5 g/dL (6.4-8.2)
[2020-06-20 08:00] VITALS: BP 101/59
[2020-06-20] MEDS: DexAMETHasone SOD PHOS 10MG/1ML VIAL INJ IV SCH (09:15)
[2020-06-20] MEDS: cefTRIAXone 1GM/50ML D5W 50 ML IV SCH (09:15)
[2020-06-20] MEDS: ZINC SULFATE 220mg CAP or TAB PO SCH (09:16)
[2020-06-20] MEDS: FUROSEMIDE 40 MG/4 ML VIAL IV SCH (09:16)
[2020-06-20] MEDS: ASCORBIC ACID 1,000 MG TAB PO SCH (09:16)
[2020-06-20] MEDS: CHOLECALCIFEROL (VITD3) 2,000 UNIT CAP PO SCH (09:16)
[2020-06-20] MEDS: ENOXAPARIN SOD 40 MG/0.4 ML SYRINGE SC SCH ×2 (09:17→21:29)
[2020-06-20] MEDS: INSULIN LANTUS (GLARGINE) 1 /0.01ml (100units/ml) SC SCH (10:07)
[2020-06-20] MEDS: AZITHROMYCIN 500MG/ 250ML 250 ML IV SCH (10:51)
[2020-06-20] MEDS: REMDESIVIR 100mg 100 MG in SODIUM CHL 0.9% 230 ML IV SCH (15:00)
[2020-06-20 16:00] VITALS: BP 128/67
[2020-06-20 23:51] VITALS: BP 138/62
[2020-06-21] MEDS: ACCU-CHEK COMFORT CURVE STRIP VI SCH ×6 (00:38→20:00)
[2020-06-21] MEDS: InsuLIN REG 1unit/0.01ml Soln (100units/ml) SC SCH ×6 (00:42→20:00)
[2020-06-21] MEDS: BUDESONIDE (INHALATION) 0.5 MG/2 ML NEB NEB SCH ×2 (07:35→09:06)
[2020-06-21 08:00] VITALS: BP 130/67
[2020-06-21] MEDS: DexAMETHasone SOD PHOS 10MG/1ML VIAL INJ IV SCH (08:58)
[2020-06-21] MEDS: FUROSEMIDE 40 MG/4 ML VIAL IV SCH (08:58)
[2020-06-21] MEDS: cefTRIAXone 1GM/50ML D5W 50 ML IV SCH (08:58)
[2020-06-21] MEDS: ZINC SULFATE 220mg CAP or TAB PO SCH (08:59)
[2020-06-21] MEDS: AZITHROMYCIN 500MG/ 250ML 250 ML IV SCH (08:59)
[2020-06-21] MEDS: CHOLECALCIFEROL (VITD3) 2,000 UNIT CAP PO SCH (08:59)
[2020-06-21] MEDS: ASCORBIC ACID 1,000 MG TAB PO SCH (08:59)
[2020-06-21] MEDS: ENOXAPARIN SOD 40 MG/0.4 ML SYRINGE SC SCH ×2 (09:00→22:00)
[2020-06-21] MEDS: ALBUTEROL SULF HFA 90MCG INH 200DOSE IN PRN ×2 (09:06→20:15)
[2020-06-21] MEDS: BUDESONIDE (INHALATION) 180 MCG IH IN SCH ×2 (09:06→20:14)
[2020-06-21] MEDS: INSULIN LANTUS (GLARGINE) 1 /0.01ml (100units/ml) SC SCH (10:00)
[2020-06-21 16:00] VITALS: BP 123/74
[2020-06-21] MEDS: DOXYCYCLINE 100 MG TAB/CAP PO SCH (22:00)
[2020-06-22] VITALS: BP 152/76
[2020-06-22] MEDS: ACCU-CHEK COMFORT CURVE STRIP VI SCH ×4 (04:00→22:00)
[2020-06-22] MEDS: InsuLIN REG 1unit/0.01ml Soln (100units/ml) SC SCH ×4 (04:00→17:00)
[2020-06-22] MEDS: BUDESONIDE (INHALATION) 180 MCG IH IN SCH ×2 (07:35→22:00)
[2020-06-22] MEDS: BUDESONIDE (INHALATION) 0.5 MG/2 ML NEB NEB SCH ×2 (07:35→18:46)
[2020-06-22] MEDS: ALBUTEROL SULF HFA 90MCG INH 200DOSE IN PRN ×2 (07:35→18:46)
[2020-06-22 08:00] VITALS: BP 147/71
[2020-06-22] MEDS: cefTRIAXone 1GM/50ML D5W 50 ML IV SCH (09:00)
[2020-06-22] MEDS: FUROSEMIDE 40 MG/4 ML VIAL IV SCH (10:00)
[2020-06-22] MEDS: INSULIN LANTUS (GLARGINE) 1 /0.01ml (100units/ml) SC SCH (10:00)
[2020-06-22] MEDS: DexAMETHasone SOD PHOS 10MG/1ML VIAL INJ IV SCH (10:00)
[2020-06-22] MEDS: ZINC SULFATE 220mg CAP or TAB PO SCH (10:00)
[2020-06-22] MEDS: ASCORBIC ACID 1,000 MG TAB PO SCH (11:38)
[2020-06-22] MEDS: CHOLECALCIFEROL (VITD3) 2,000 UNIT CAP PO SCH (11:38)
[2020-06-22] MEDS: ENOXAPARIN SOD 40 MG/0.4 ML SYRINGE SC SCH ×2 (11:38→22:00)
[2020-06-22] MEDS: DOXYCYCLINE 100 MG TAB/CAP PO SCH ×2 (11:38→22:00)
[2020-06-22] MEDS ORDERED: DEXTROSE (50%) 50ML SYRG IV PRN (13:00)
[2020-06-22] MEDS ORDERED: ERGOCALCIFEROL 50,000 UNIT(1.25MG) CAP PO ONE (13:30)
[2020-06-22 15:56] VITALS: BP 133/67
[2020-06-22] MEDS: TAMSULOSIN HYDROCHLORIDE 0.4 MG CAP PO SCH (19:16)
[2020-06-22] MEDS ORDERED: InsuLIN REG 1unit/0.01ml Soln (100units/ml) SC SCH (22:00)
[2020-06-22 23:46] VITALS: BP 131/80
[2020-06-23 00:55] VITALS: BP 131/80
[2020-06-23 01:20] VITALS: BP 145/69
[2020-06-23 02:43] VITALS: BP 152/84
[2020-06-23 05:47] LABS: Hematocrit 37.6 % (41.0-53.0); Hemoglobin 13.2 g/dL (13.5-17.5); Mean Corpuscular Hemoglobin 31.5 pg (28.0-32.0); Mean Corpuscular Hgb Conc. 35.1 g/dL (32.0-36.0); Mean Corpuscular Volume 89.8 fL (80.0-100.0); Platelet Count (auto) 155 10^3/uL (140-450); Red Blood Cells 4.19 10^6/uL (4.5-5.90); White Blood Cell 9.6 10^3/uL (4.4-10.8)
[2020-06-23 06:00] LABS: Calcium 7.9 mg/dL (8.5-10.1); Potassium 3.9 mmol/L (3.5-5.1)
[2020-06-23 06:02] LABS: BUN/Creatinine Ratio 26.3
[2020-06-23 06:18] LABS: Basophils % (manual) 0 (0.0-2.0); Blast Cells 0; Metamyelocytes % 0; Promyelocytes % 0; Reactive Lymphocytes 0
[2020-06-23] MEDS: ACCU-CHEK COMFORT CURVE STRIP VI SCH ×5 (07:00→23:46)
[2020-06-23] MEDS: InsuLIN REG 1unit/0.01ml Soln (100units/ml) SC SCH ×4 (07:00→23:51)
[2020-06-23] MEDS: BUDESONIDE (INHALATION) 180 MCG IH IN SCH ×2 (07:26→18:49)
[2020-06-23] MEDS: ALBUTEROL SULF HFA 90MCG INH 200DOSE IN PRN (07:27)
[2020-06-23 08:00] VITALS: BP 119/64
[2020-06-23 08:17] LABS: Band Neutrophils % (manual) 2; Eosinophils % (manual) 1 (0-7); Lymphocytes % (manual) 8 (10.0-50.0); Monocytes % (manual) 9 (0-12); Myelocytes % 1
[2020-06-23] MEDS: cefTRIAXone 1GM/50ML D5W 50 ML IV SCH (09:00)
[2020-06-23] MEDS: ZINC SULFATE 220mg CAP or TAB PO SCH (10:00)
[2020-06-23] MEDS: CHOLECALCIFEROL (VITD3) 2,000 UNIT CAP PO SCH (10:00)
[2020-06-23] MEDS: DexAMETHasone SOD PHOS 10MG/1ML VIAL INJ IV SCH (10:00)
[2020-06-23] MEDS: INSULIN LANTUS (GLARGINE) 1 /0.01ml (100units/ml) SC SCH (10:00)
[2020-06-23] MEDS: FUROSEMIDE 40 MG/4 ML VIAL IV SCH (10:00)
[2020-06-23] MEDS: ASCORBIC ACID 1,000 MG TAB PO SCH (10:00)
[2020-06-23] MEDS: ENOXAPARIN SOD 40 MG/0.4 ML SYRINGE SC SCH ×2 (10:00→20:33)
[2020-06-23] MEDS: amLODIPine BESYLATE 5 MG TAB PO SCH (10:00)
[2020-06-23] MEDS: DOXYCYCLINE 100 MG TAB/CAP PO SCH ×2 (10:00→20:34)
[2020-06-23 16:00] VITALS: BP 138/59
[2020-06-23] MEDS: TAMSULOSIN HYDROCHLORIDE 0.4 MG CAP PO SCH (18:00)
[2020-06-23] MEDS: BUDESONIDE (INHALATION) 0.5 MG/2 ML NEB NEB SCH ×2 (18:49→18:52)
[2020-06-23] MEDS ORDERED: DEXTROSE (50%) 50ML SYRG IV PRN (21:15)
[2020-06-24] VITALS: BP 146/71
[2020-06-24] MEDS: ACCU-CHEK COMFORT CURVE STRIP VI SCH ×5 (03:40→23:37)
[2020-06-24] MEDS: InsuLIN REG 1unit/0.01ml Soln (100units/ml) SC SCH ×3 (03:43→23:41)
[2020-06-24 06:19] LABS: Hematocrit 36.6 % (41.0-53.0); Hemoglobin 13.1 g/dL (13.5-17.5); Mean Corpuscular Hemoglobin 32.1 pg (28.0-32.0); Mean Corpuscular Hgb Conc. 35.7 g/dL (32.0-36.0); Mean Corpuscular Volume 89.7 fL (80.0-100.0); Platelet Count (auto) 154 10^3/uL (140-450); Red Blood Cells 4.09 10^6/uL (4.5-5.90); White Blood Cell 10.3 10^3/uL (4.4-10.8)
[2020-06-24 06:32] LABS: BUN/Creatinine Ratio 25.6; Calcium 8.2 mg/dL (8.5-10.1); Potassium 3.9 mmol/L (3.5-5.1)
[2020-06-24 06:40] LABS: Basophils % (manual) 0 (0.0-2.0); Blast Cells 0; Promyelocytes % 0
[2020-06-24] MEDS: ALBUTEROL SULF HFA 90MCG INH 200DOSE IN PRN ×2 (06:44→19:27)
[2020-06-24 08:00] VITALS: BP 126/54
[2020-06-24 09:24] LABS: Band Neutrophils % (manual) 13; Eosinophils % (manual) 1 (0-7); Lymphocytes % (manual) 16 (10.0-50.0); Metamyelocytes % 3; Monocytes % (manual) 4 (0-12); Myelocytes % 2; Reactive Lymphocytes 1
[2020-06-24] MEDS: cefTRIAXone 1GM/50ML D5W 50 ML IV SCH (09:33)
[2020-06-24] MEDS: BUDESONIDE (INHALATION) 180 MCG IH IN SCH ×2 (09:33→19:26)
[2020-06-24] MEDS: DexAMETHasone SOD PHOS 10MG/1ML VIAL INJ IV SCH (09:34)
[2020-06-24] MEDS: ZINC SULFATE 220mg CAP or TAB PO SCH (09:38)
[2020-06-24] MEDS: FUROSEMIDE 40 MG/4 ML VIAL IV SCH (09:38)
[2020-06-24] MEDS: CHOLECALCIFEROL (VITD3) 2,000 UNIT CAP PO SCH (09:39)
[2020-06-24] MEDS: DOXYCYCLINE 100 MG TAB/CAP PO SCH ×2 (09:39→21:29)
[2020-06-24] MEDS: ASCORBIC ACID 1,000 MG TAB PO SCH (09:39)
[2020-06-24] MEDS: amLODIPine BESYLATE 5 MG TAB PO SCH (09:39)
[2020-06-24] MEDS: INSULIN LANTUS (GLARGINE) 1 /0.01ml (100units/ml) SC SCH (09:57)
[2020-06-24] MEDS: ENOXAPARIN SOD 40 MG/0.4 ML SYRINGE SC SCH ×2 (09:57→21:29)
[2020-06-24] MEDS: BUDESONIDE (INHALATION) 0.5 MG/2 ML NEB NEB SCH ×2 (10:00→22:00)
[2020-06-24] MEDS ORDERED: DEXTROSE (50%) 50ML SYRG IV PRN ×2 (11:45→22:30)
[2020-06-24 16:02] VITALS: BP 129/72
[2020-06-24] MEDS: TAMSULOSIN HYDROCHLORIDE 0.4 MG CAP PO SCH (16:59)
[2020-06-24] MEDS ORDERED: InsuLIN REG 1unit/0.01ml Soln (100units/ml) SC SCH ×2 (17:00→22:00)
[2020-06-24] MEDS: GABAPENTIN 100 MG CAP PO SCH (21:29)
[2020-06-25] VITALS: BP 130/70
[2020-06-25] MEDS: ACCU-CHEK COMFORT CURVE STRIP VI SCH ×3 (03:56→11:51)
[2020-06-25] MEDS: InsuLIN REG 1unit/0.01ml Soln (100units/ml) SC SCH ×3 (03:58→11:53)
[2020-06-25] MEDS: BUDESONIDE (INHALATION) 180 MCG IH IN SCH (07:29)
[2020-06-25] MEDS: ALBUTEROL SULF HFA 90MCG INH 200DOSE IN PRN (07:29)
[2020-06-25 08:00] VITALS: BP 140/88
[2020-06-25] MEDS: FUROSEMIDE 40 MG/4 ML VIAL IV SCH (08:41)
[2020-06-25] MEDS: ZINC SULFATE 220mg CAP or TAB PO SCH (08:42)
[2020-06-25] MEDS: GABAPENTIN 100 MG CAP PO SCH (08:42)
[2020-06-25] MEDS: CHOLECALCIFEROL (VITD3) 2,000 UNIT CAP PO SCH (08:43)
[2020-06-25] MEDS: DOXYCYCLINE 100 MG TAB/CAP PO SCH (08:43)
[2020-06-25] MEDS: ASCORBIC ACID 1,000 MG TAB PO SCH (08:43)
[2020-06-25] MEDS: amLODIPine BESYLATE 5 MG TAB PO SCH (08:43)
[2020-06-25] MEDS: ENOXAPARIN SOD 40 MG/0.4 ML SYRINGE SC SCH (08:45)
[2020-06-25] MEDS: INSULIN LANTUS (GLARGINE) 1 /0.01ml (100units/ml) SC SCH (10:00)
[2020-06-25] MEDS ORDERED: DexAMETHasone 4 MG TAB PO SCH (10:00)
[2020-06-25 14:04] VITALS: BP 135/71
[2020-06-25 16:00] VITALS: BP 142/70
== END 2020-06-25 16:50 | disposition home health service (06) | DRG 871 ==
LOC: ER 10:02 → TELE 15:19 → TELE-WESTW 06-17 19:49
PROVIDERS: ADMIT Nurse Practitioner Acute Care; ATTEND Internal Medicine
PROC: XW033E5 Introduction of Remdesivir Anti-infective into Peripheral Vein, Percutaneous Approach, New Technology Group 5 (ICD-10-PCS; 2020-06-16)
PROC: XW13325 Transfusion of Convalescent Plasma (Nonautologous) into Peripheral Vein, Percutaneous Approach, New Technology Group 5 (ICD-10-PCS; principal; 2020-06-23)
DX: A41.89 Other specified sepsis (principal); U07.1 COVID-19; J12.82 Pneumonia due to coronavirus disease 2019; J96.01 Acute respiratory failure with hypoxia; N17.0 Acute kidney failure with tubular necrosis; D68.59 Other primary thrombophilia; E87.2 Acidosis; E87.1 Hypo-osmolality and hyponatremia; R65.20 Severe sepsis without septic shock; E66.9 Obesity, unspecified; D89.839 Cytokine release syndrome, grade unspecified; E87.6 Hypokalemia; E78.5 Hyperlipidemia, unspecified; N18.9 Chronic kidney disease, unspecified; I25.10 Atherosclerotic heart disease of native coronary artery without angina pectoris; I12.9 Hypertensive chronic kidney disease with stage 1 through stage 4 chronic kidney disease, or unspecified chronic kidney disease; E11.22 Type 2 diabetes mellitus with diabetic chronic kidney disease; H91.90 Unspecified hearing loss, unspecified ear; Z68.32 Body mass index [BMI] 32.0-32.9, adult; E11.65 Type 2 diabetes mellitus with hyperglycemia; N40.0 Benign prostatic hyperplasia without lower urinary tract symptoms; Z79.4 Long term (current) use of insulin; Z79.82 Long term (current) use of aspirin; Z82.3 Family history of stroke; Z82.49 Family history of ischemic heart disease and other diseases of the circulatory system; Z91.14 Patient's other noncompliance with medication regimen
CPT/HCPCS: 36415; 71045; 80048; 80053; 82010; 82306; 82728; 82962; 83036; 83605; 83615; 83735; 84100; 84443; 84484; 85007; 85025; 85027; 85379; 86141; 86850; 86900; 86901; 87040; 87426; 87804; 93005; 94640; 97116; 97530; G0378; J0696; J1100; J1815

== ENCOUNTER 2020-07-01 13:53 | Inpatient (IN) | payer MEDICARE, OTHER ==
[~2020-07-01] VITALS: Ht 182.9 cm; Wt 128.9 kg
[~2020-07-01 13:53] MED LIST changes: +ASPI-543 PO; +ATOR10TA PO
[2020-07-01] MEDS ORDERED: MIDAZOLAM DRIP 50 mg/50mL 50 ML IV ONE (13:59)
[2020-07-01] MEDS ORDERED: PROPOFOL 100 ML IV ONE (14:19)
[2020-07-01] MEDS ORDERED: methylPREDNISolone SOD SUCC 125 MG/2 ML VL IV ONE (14:45)
[2020-07-01] MEDS ORDERED: AZITHROMYCIN 500MG/ 250ML 250 ML IV ONE (14:45)
[2020-07-01] MEDS ORDERED: fentaNYL Drip 2500mCg/250mlNS 250 ML IV ONE (14:52)
[2020-07-01] MEDS ORDERED: ONDANSETRON HCL 4 MG/2 ML VIAL IV PRN (15:00)
[2020-07-01] MEDS ORDERED: MORPHINE SULF INJ 2 MG/ML SYRINGE 1ML IV PRN ×2 (15:00)
[2020-07-01] MEDS ORDERED: ALBUTEROL SULF HFA 90MCG INH 200DOSE IN PRN (15:00)
[2020-07-01] MEDS ORDERED: NITROGLYCERIN 0.4 MG SL TAB SL PRN (15:00)
[2020-07-01] MEDS ORDERED: ACETAMINOPHEN 500 MG TAB PO PRN (15:00)
[2020-07-01] MEDS ORDERED: DEXTROSE (50%) 50ML SYRG IV PRN (15:00)
[2020-07-01] MEDS: fentaNYL Drip 2500mCg/250mlNS 250 ML IV SCH (15:23)
[2020-07-01] MEDS: MIDAZOLAM DRIP 50 mg/50mL 50 ML IV SCH (15:24)
[2020-07-01 15:32] LABS: Basophils # (auto) 0.1 10 ^3/uL (0-0.2); Basophils % (auto) 0.6 % (0.0-2.0); Eosinophils # (auto) 0 10 ^3/uL (0-0.8); Eosinophils % (auto) 0.3 % (0.0-7.0); Hematocrit 40.2 % (41.0-53.0); Hemoglobin 13.5 g/dL (13.5-17.5); Lymphocytes # (auto) 0.2 10 ^3/uL (0.4-5.4); Lymphocytes % (auto) 1.7 % (10.0-50.0); Mean Corpuscular Hemoglobin 30.7 pg (28.0-32.0); Mean Corpuscular Hgb Conc. 33.4 g/dL (32.0-36.0); Mean Corpuscular Volume 91.7 fL (80.0-100.0); Monocytes # (auto) 0.7 10 ^3/uL (0-1.3); Neutrophils # (auto) 10.4 10 ^3/uL (1.6-8.6); Neutrophils % (auto) 91.4 % (37.0-80.0); Platelet Count (auto) 83 10^3/uL (140-450); Red Blood Cells 4.39 10^6/uL (4.5-5.90); Red Cell Distribution Width 14.6 % (11.8-14.3); White Blood Cell 11.4 10^3/uL (4.4-10.8)
[2020-07-01 15:47] LABS: Albumin 1.8 g/dL (3.4-5.0); Calcium 7.4 mg/dL (8.5-10.1); Potassium 4.9 mmol/L (3.5-5.1)
[2020-07-01 15:49] LABS: Lactic Acid w/Reflex 2.7 mmol/L (0.4-2.0)
[2020-07-01 15:55] LABS: BUN/Creatinine Ratio 16.6; Bilirubin, Total 1.2 mg/dL (0.2-1.0); CRP High Sensitivity 14.1 mg/dL (< 0.3); Total Protein 6.4 g/dL (6.4-8.2)
[2020-07-01 16:11] VITALS: BP 188/70
[2020-07-01] MEDS: PROPOFOL 100 ML IV SCH (16:29)
[2020-07-01] MEDS: ACCU-CHEK COMFORT CURVE STRIP VI SCH (17:34)
[2020-07-01] MEDS: InsuLIN REG 1unit/0.01ml Soln (100units/ml) SC SCH (17:34)
[2020-07-01] MEDS: PIPERACILLIN-TAZOB 3.375GM 100 ML IV SCH (17:55)
[2020-07-01 19:26] VITALS: BP 102/64
[2020-07-01] MEDS: ENOXAPARIN SOD 40 MG/0.4 ML SYRINGE SC SCH (21:17)
[2020-07-01 21:46] LABS: Urine Bacteria FEW /hpf (None Seen); Urine Blood 3+ /uL (Negative); Urine Hyaline Cast MOD /lpf (0 - 2); Urine Mucus FEW (None Seen); Urine Specific Gravity 1.021 (1.001-1.035); Urine WBC 9 /hpf (0 - 3)
[2020-07-01] MEDS ORDERED: BUDESONIDE (INHALATION) 180 MCG IH IN SCH (22:00)
[2020-07-01 22:55] VITALS: BP 104/64
[2020-07-02] MEDS: PIPERACILLIN-TAZOB 3.375GM 100 ML IV SCH ×3 (00:25→13:57)
[2020-07-02] MEDS: ACCU-CHEK COMFORT CURVE STRIP VI SCH ×4 (00:25→17:44)
[2020-07-02] MEDS: InsuLIN REG 1unit/0.01ml Soln (100units/ml) SC SCH ×4 (00:26→17:45)
[2020-07-02] MEDS: MIDAZOLAM DRIP 50 mg/50mL 50 ML IV SCH ×2 (01:00→05:00)
[2020-07-02 02:40] VITALS: BP 91/55
[2020-07-02 06:33] VITALS: BP 104/58
[2020-07-02 07:59] LABS: BUN/Creatinine Ratio 16.7
[2020-07-02 08:00] LABS: Calcium 7.5 mg/dL (8.5-10.1)
[2020-07-02 08:08] LABS: Potassium 5.7 mmol/L (3.5-5.1)
[2020-07-02] MEDS ORDERED: DEXTROSE (50%) 50ML SYRG IV PRN (08:30)
[2020-07-02] MEDS ORDERED: SODIUM ZIRCONIUM CYCL 10 GM PAK PO ONE ×2 (08:30→19:15)
[2020-07-02] MEDS ORDERED: SODIUM BICARBONATE 8.4 % INJ 50ML VIAL IV ONE (08:30)
[2020-07-02] MEDS ORDERED: InsuLIN REG 1unit/0.01ml Soln (100units/ml) IV ONE ×2 (08:30→19:15)
[2020-07-02] MEDS ORDERED: CALCIUM GLUC 4.65meq/50ml D5AE 50 ML IV ONE (08:30)
[2020-07-02 08:40] LABS: Basophils # (auto) 0.1 10 ^3/uL (0-0.2); Basophils % (auto) 0.8 % (0.0-2.0); Eosinophils # (auto) 0 10 ^3/uL (0-0.8); Eosinophils % (auto) 0.1 % (0.0-7.0); Hematocrit 32.6 % (41.0-53.0); Lymphocytes # (auto) 0.6 10 ^3/uL (0.4-5.4); Lymphocytes % (auto) 7.1 % (10.0-50.0); Mean Corpuscular Hemoglobin 31.2 pg (28.0-32.0); Mean Corpuscular Hgb Conc. 33.8 g/dL (32.0-36.0); Mean Corpuscular Volume 92.4 fL (80.0-100.0); Monocytes # (auto) 0.3 10 ^3/uL (0-1.3); Monocytes % (auto) 4.2 % (0.0-12.0); Neutrophils % (auto) 87.8 % (37.0-80.0); Platelet Count (auto) 80 10^3/uL (140-450); Red Blood Cells 3.52 10^6/uL (4.5-5.90); Red Cell Distribution Width 14.5 % (11.8-14.3); White Blood Cell 7.9 10^3/uL (4.4-10.8)
[2020-07-02] MEDS: ENOXAPARIN SOD 40 MG/0.4 ML SYRINGE SC SCH (09:30)
[2020-07-02] MEDS ORDERED: INSULIN LANTUS (GLARGINE) 1 /0.01ml (100units/ml) SC SCH (10:00)
[2020-07-02] MEDS ORDERED: levoFLOXacin 750MG 150 ML IV SCH (10:00)
[2020-07-02] MEDS: SODIUM BICARBONATE 50ML VIAL 50 ML in SOD CHL 0.45% 1,000 ML IV SCH (10:22)
[2020-07-02] MEDS: ASCORBIC ACID 1,000 MG TAB PO SCH (10:23)
[2020-07-02] MEDS: CHOLECALCIFEROL (VITD3) 2,000 UNIT CAP/TAB PO SCH (10:23)
[2020-07-02] MEDS: ZINC SULFATE 220mg CAP or TAB PO SCH (10:23)
[2020-07-02 10:37] VITALS: BP 95/56
[2020-07-02] MEDS ORDERED: LINEZOLID 600MG/300ML 300 ML IV SCH (11:00)
[2020-07-02] MEDS: CLINDAMYCIN 300MG IV 50 ML IV SCH ×2 (11:19→19:55)
[2020-07-02] MEDS ORDERED: DexAMETHasone SOD PHOS 4 MG/1ML SDV INJ IV ONE (14:00)
[2020-07-02] MEDS ORDERED: Glucerna 1.2 Cal 1Liter BOTTLE GT SCH (14:00)
[2020-07-02] MEDS: fentaNYL Drip 2500mCg/250mlNS 250 ML IV SCH (14:04)
[2020-07-02 14:08] LABS: Calcium 7.3 mg/dL (8.5-10.1); Potassium 5.5 mmol/L (3.5-5.1)
[2020-07-02 14:32] VITALS: BP 96/52
[2020-07-02] MEDS ORDERED: FAMO-12 PO (16:10)
[2020-07-02] MEDS ORDERED: LOSA100T25 PO (16:36)
[2020-07-02] MEDS ORDERED: CHOL20009 PO (16:38)
[2020-07-02] MEDS ORDERED: ASCO500T11 PO (16:38)
[2020-07-02] MEDS ORDERED: ZINC220C8 PO (16:38)
[2020-07-02] MEDS ORDERED: GABA100C9 PO (16:38)
[2020-07-02] MEDS ORDERED: DEXA2TAB PO (16:39)
[2020-07-02] MEDS: PROPOFOL 100 ML IV SCH (17:38)
[2020-07-02 18:50] VITALS: BP 93/48
[2020-07-02] MEDS ORDERED: DEXTROSE (50%) 50ML SYRG IV ONE (19:15)
[2020-07-02 22:00] VITALS: BP 98/56
[2020-07-02] MEDS: OSELTAMIVIR 30 MG CAP PO SCH (22:00)
[2020-07-02] MEDS: INSULIN LANTUS (GLARGINE) 1 /0.01ml (100units/ml) SC SCH (22:00)
[2020-07-03] VITALS (20 sets, daily range): BP systolic 96–117; BP diastolic 46–68
[2020-07-03] MEDS: ACCU-CHEK COMFORT CURVE STRIP VI SCH ×5 (00:38→22:15)
[2020-07-03] MEDS: InsuLIN REG 1unit/0.01ml Soln (100units/ml) SC SCH ×5 (00:38→22:16)
[2020-07-03] MEDS: CLINDAMYCIN 300MG IV 50 ML IV SCH ×3 (03:00→19:00)
[2020-07-03] MEDS ORDERED: SODIUM BICARBONATE 8.4% INJ 50ML SYRINGE ONE (04:44)
[2020-07-03] MEDS: SODIUM BICARBONATE 50ML VIAL 50 ML in SOD CHL 0.45% 1,000 ML IV SCH ×2 (05:48→22:49)
[2020-07-03 07:19] LABS: Albumin 1.6 g/dL (3.4-5.0); Calcium 7.4 mg/dL (8.5-10.1); Potassium 5.3 mmol/L (3.5-5.1)
[2020-07-03 07:21] LABS: BUN/Creatinine Ratio 18.6
[2020-07-03 07:23] LABS: Bilirubin, Total 0.4 mg/dL (0.2-1.0); Total Protein 5.6 g/dL (6.4-8.2)
[2020-07-03 07:35] LABS: Basophils # (auto) 0 10 ^3/uL (0-0.2); Basophils % (auto) 0.1 % (0.0-2.0); Eosinophils # (auto) 0 10 ^3/uL (0-0.8); Eosinophils % (auto) 0.1 % (0.0-7.0); Hematocrit 32.6 % (41.0-53.0); Lymphocytes # (auto) 0.6 10 ^3/uL (0.4-5.4); Lymphocytes % (auto) 6.3 % (10.0-50.0); Mean Corpuscular Hemoglobin 30.9 pg (28.0-32.0); Mean Corpuscular Hgb Conc. 33.6 g/dL (32.0-36.0); Mean Corpuscular Volume 92.2 fL (80.0-100.0); Monocytes # (auto) 0.6 10 ^3/uL (0-1.3); Monocytes % (auto) 6.9 % (0.0-12.0); Neutrophils # (auto) 7.7 10 ^3/uL (1.6-8.6); Neutrophils % (auto) 86.6 % (37.0-80.0); Platelet Count (auto) 88 10^3/uL (140-450); Red Blood Cells 3.54 10^6/uL (4.5-5.90); Red Cell Distribution Width 14.9 % (11.8-14.3); White Blood Cell 8.9 10^3/uL (4.4-10.8)
[2020-07-03] MEDS ORDERED: levoFLOXacin 750MG 150 ML IV SCH (10:00)
[2020-07-03] MEDS: ASCORBIC ACID 1,000 MG TAB PO SCH (11:29)
[2020-07-03] MEDS: CHOLECALCIFEROL (VITD3) 2,000 UNIT CAP/TAB PO SCH (11:29)
[2020-07-03] MEDS: OSELTAMIVIR 30 MG CAP PO SCH ×2 (11:29→22:00)
[2020-07-03] MEDS: DexAMETHasone SOD PHOS 10MG/1ML VIAL INJ IV SCH (11:29)
[2020-07-03] MEDS: ZINC SULFATE 220mg CAP or TAB PO SCH (11:29)
[2020-07-03] MEDS: INSULIN LANTUS (GLARGINE) 1 /0.01ml (100units/ml) SC SCH ×2 (11:38→22:18)
[2020-07-03] MEDS: MIDAZOLAM DRIP 50 mg/50mL 50 ML IV SCH ×2 (15:15→20:00)
[2020-07-03] MEDS: fentaNYL Drip 2500mCg/250mlNS 250 ML IV SCH (15:15)
[2020-07-03] MEDS: PROPOFOL 100 ML IV SCH (16:00)
[2020-07-03] MEDS ORDERED: MIDAZOLAM HCL 1MG/1ML-2 ML VIAL ONE (17:34)
[2020-07-03] MEDS ORDERED: HYDROmorphone HCL 2 MG/ML VL ONE (17:34)
[2020-07-03] MEDS ORDERED: LIDOCAINE 2% JELLY 11ml (GLYDO) ONE (18:00)
[2020-07-03] MEDS ORDERED: MIDAZOLAM HCL 1MG/1ML-2 ML VIAL IV PRN (18:15)
[2020-07-03] MEDS ORDERED: LABETALOL HCL 5 MG/ML 4ML SYRINGE IV PRN (18:15)
[2020-07-03] MEDS ORDERED: ACCU-CHEK COMFORT CURVE STRIP VI ONE (18:15)
[2020-07-03] MEDS ORDERED: HYDROmorphone HCL 2 MG/ML VL IV PRN (18:15)
[2020-07-03] MEDS ORDERED: ePHEDrine SULFATE 50 MG/ML AMP IV PRN (18:15)
[2020-07-03] MEDS ORDERED: MORPHINE SULFATE 4 MG/ML SYR/VIAL IV PRN (18:15)
[2020-07-03] MEDS ORDERED: ONDANSETRON HCL 4 MG/2 ML VIAL IV PRN (18:15)
[2020-07-03] MEDS ORDERED: DexAMETHasone SOD PHOS 10MG/1ML VIAL INJ ONE (18:39)
[2020-07-03] MEDS ORDERED: PROPOFOL 10 MG/ML 20 ML IV ONE (18:48)
[2020-07-03 22:13] LABS: Hematocrit 31.2 % (41.0-53.0); Hemoglobin 10.5 g/dL (13.5-17.5)
[2020-07-03 22:57] LABS: INR 1.23 (0.9-1.15); Partial Thromboplastin Time 28.2 sec (23.0-31.2)
[2020-07-04] VITALS (97 sets, daily range): BP systolic 95–128; BP diastolic 42–70
[2020-07-04] MEDS: MIDAZOLAM DRIP 50 mg/50mL 50 ML IV SCH ×4 (01:00→23:00)
[2020-07-04] MEDS: CLINDAMYCIN 300MG IV 50 ML IV SCH ×3 (03:08→18:17)
[2020-07-04 05:17] LABS: Basophils # (auto) 0 10 ^3/uL (0-0.2); Basophils % (auto) 0.4 % (0.0-2.0); Eosinophils # (auto) 0 10 ^3/uL (0-0.8); Hematocrit 29.9 % (41.0-53.0); Hemoglobin 10.3 g/dL (13.5-17.5); Lymphocytes # (auto) 0.4 10 ^3/uL (0.4-5.4); Lymphocytes % (auto) 6.7 % (10.0-50.0); Mean Corpuscular Hemoglobin 31.9 pg (28.0-32.0); Mean Corpuscular Hgb Conc. 34.6 g/dL (32.0-36.0); Mean Corpuscular Volume 92.1 fL (80.0-100.0); Monocytes # (auto) 0.4 10 ^3/uL (0-1.3); Monocytes % (auto) 5.3 % (0.0-12.0); Neutrophils # (auto) 5.8 10 ^3/uL (1.6-8.6); Neutrophils % (auto) 87.6 % (37.0-80.0); Platelet Count (auto) 76 10^3/uL (140-450); Red Blood Cells 3.24 10^6/uL (4.5-5.90); Red Cell Distribution Width 14.6 % (11.8-14.3); White Blood Cell 6.7 10^3/uL (4.4-10.8)
[2020-07-04 05:39] LABS: Calcium 6.7 mg/dL (8.5-10.1)
[2020-07-04 05:42] LABS: BUN/Creatinine Ratio 21.2
[2020-07-04] MEDS: ACCU-CHEK COMFORT CURVE STRIP VI SCH ×4 (06:25→18:10)
[2020-07-04] MEDS: InsuLIN REG 1unit/0.01ml Soln (100units/ml) SC SCH ×4 (06:26→18:13)
[2020-07-04 07:06] LABS: Potassium 5.7 mmol/L (3.5-5.1)
[2020-07-04] MEDS: DexAMETHasone SOD PHOS 10MG/1ML VIAL INJ IV SCH (09:54)
[2020-07-04] MEDS: ASCORBIC ACID 1,000 MG TAB PO SCH (09:55)
[2020-07-04] MEDS: OSELTAMIVIR 30 MG CAP PO SCH ×2 (09:55→22:00)
[2020-07-04] MEDS: BELLADONNA ALKAL/OPIUM (16.2/30MG) RECT SUPP PR SCH (09:55)
[2020-07-04] MEDS: CHOLECALCIFEROL (VITD3) 2,000 UNIT CAP/TAB PO SCH (09:55)
[2020-07-04] MEDS: ZINC SULFATE 220mg CAP or TAB PO SCH (09:55)
[2020-07-04] MEDS ORDERED: SODIUM BICARBONATE 8.4% INJ 50ML SYRINGE IV ONE (10:45)
[2020-07-04] MEDS ORDERED: SODIUM ZIRCONIUM CYCL 10 GM PAK PO ONE (10:45)
[2020-07-04] MEDS ORDERED: ALBUTEROL SULF 2.5 MG/0.5ML(0.5%) NEB SOLN NEB ONE (10:45)
[2020-07-04] MEDS ORDERED: CALCIUM GLUC 4.65meq/50ml D5AE 50 ML IV ONE (10:45)
[2020-07-04] MEDS ORDERED: BUMETANIDE 2.5mg/10ml (0.25 mg/ml) INJ IV ONE (11:00)
[2020-07-04] MEDS: SODIUM ZIRCONIUM CYCL 10 GM PAK PO SCH ×2 (14:03→22:00)
[2020-07-04] MEDS: fentaNYL Drip 2500mCg/250mlNS 250 ML IV SCH (15:15)
[2020-07-04] MEDS: PROPOFOL 100 ML IV SCH (16:00)
[2020-07-04] MEDS ORDERED: DAPTOmycin 500 MG in SODIUM CHL 0.9% 50 ML IV ONE (18:24)
[2020-07-04] MEDS: SODIUM BICARBONATE 50ML VIAL 50 ML in SOD CHL 0.45% 1,000 ML IV SCH (19:30)
[2020-07-04] MEDS: INSULIN LANTUS (GLARGINE) 1 /0.01ml (100units/ml) SC SCH (22:00)
[2020-07-04 22:09] LABS: BUN/Creatinine Ratio 19.3; Calcium 6.8 mg/dL (8.5-10.1); Potassium 5.3 mmol/L (3.5-5.1)
[2020-07-05] VITALS (83 sets, daily range): BP systolic 101–129; BP diastolic 46–65
[2020-07-05] MEDS: MIDAZOLAM DRIP 50 mg/50mL 50 ML IV SCH ×3 (02:00→19:37)
[2020-07-05] MEDS: fentaNYL Drip 2500mCg/250mlNS 250 ML IV SCH (04:00)
[2020-07-05] MEDS: ACCU-CHEK COMFORT CURVE STRIP VI SCH ×5 (06:03→21:24)
[2020-07-05] MEDS: SODIUM ZIRCONIUM CYCL 10 GM PAK PO SCH ×3 (06:03→21:22)
[2020-07-05] MEDS: InsuLIN REG 1unit/0.01ml Soln (100units/ml) SC SCH ×5 (06:07→21:23)
[2020-07-05 06:49] LABS: Basophils # (auto) 0 10 ^3/uL (0-0.2); Basophils % (auto) 0.5 % (0.0-2.0); Eosinophils # (auto) 0 10 ^3/uL (0-0.8); Hematocrit 27.3 % (41.0-53.0); Hemoglobin 9.6 g/dL (13.5-17.5); Lymphocytes # (auto) 0.3 10 ^3/uL (0.4-5.4); Lymphocytes % (auto) 5.4 % (10.0-50.0); Mean Corpuscular Hemoglobin 32.2 pg (28.0-32.0); Mean Corpuscular Hgb Conc. 35.3 g/dL (32.0-36.0); Mean Corpuscular Volume 91.1 fL (80.0-100.0); Monocytes # (auto) 0.5 10 ^3/uL (0-1.3); Monocytes % (auto) 8.4 % (0.0-12.0); Neutrophils # (auto) 5.1 10 ^3/uL (1.6-8.6); Neutrophils % (auto) 85.7 % (37.0-80.0); Platelet Count (auto) 69 10^3/uL (140-450); Red Cell Distribution Width 14.3 % (11.8-14.3); White Blood Cell 5.9 10^3/uL (4.4-10.8)
[2020-07-05 07:08] LABS: Potassium 5.2 mmol/L (3.5-5.1)
[2020-07-05 07:19] LABS: BUN/Creatinine Ratio 18.6; Calcium 6.8 mg/dL (8.5-10.1)
[2020-07-05] MEDS: ZINC SULFATE 220mg CAP or TAB PO SCH (10:00)
[2020-07-05] MEDS: ASCORBIC ACID 1,000 MG TAB PO SCH (10:00)
[2020-07-05] MEDS: CHOLECALCIFEROL (VITD3) 2,000 UNIT CAP/TAB PO SCH (10:00)
[2020-07-05] MEDS: BELLADONNA ALKAL/OPIUM (16.2/30MG) RECT SUPP PR SCH (10:00)
[2020-07-05] MEDS: DexAMETHasone SOD PHOS 10MG/1ML VIAL INJ IV SCH (10:00)
[2020-07-05] MEDS: INSULIN LANTUS (GLARGINE) 1 /0.01ml (100units/ml) SC SCH ×2 (10:00→21:23)
[2020-07-05] MEDS: OSELTAMIVIR 30 MG CAP PO SCH (10:00)
[2020-07-05] MEDS ORDERED: PROPOFOL 100 ML IV ONE (11:28)
[2020-07-05] MEDS: PROPOFOL 100 ML IV SCH (11:49)
[2020-07-05] MEDS ORDERED: Nepro With Carb Steady 1 Liter Bottle GT SCH (13:15)
[2020-07-05] MEDS: SODIUM BICARBONATE 50ML VIAL 150 ML in D5W 5% 1,000 ML IV SCH (16:45)
[2020-07-05] MEDS: DAPTOmycin 500 MG in SODIUM CHL 0.9% 50 ML IV SCH (17:34)
[2020-07-06] VITALS (96 sets, daily range): BP systolic 104–146; BP diastolic 45–61
[2020-07-06] MEDS: MIDAZOLAM DRIP 50 mg/50mL 50 ML IV SCH ×3 (01:54→22:12)
[2020-07-06] MEDS: SODIUM BICARBONATE 50ML VIAL 150 ML in D5W 5% 1,000 ML IV SCH ×2 (03:45→16:40)
[2020-07-06] MEDS: fentaNYL Drip 2500mCg/250mlNS 250 ML IV SCH (05:05)
[2020-07-06 05:54] LABS: Basophils # (auto) 0 10 ^3/uL (0-0.2); Basophils % (auto) 0.1 % (0.0-2.0); Eosinophils # (auto) 0 10 ^3/uL (0-0.8); Eosinophils % (auto) 0.4 % (0.0-7.0); Hemoglobin 9.3 g/dL (13.5-17.5); Lymphocytes # (auto) 0.3 10 ^3/uL (0.4-5.4); Lymphocytes % (auto) 5.9 % (10.0-50.0); Mean Corpuscular Hemoglobin 31.3 pg (28.0-32.0); Mean Corpuscular Hgb Conc. 34.2 g/dL (32.0-36.0); Mean Corpuscular Volume 91.5 fL (80.0-100.0); Monocytes # (auto) 0.4 10 ^3/uL (0-1.3); Monocytes % (auto) 6.8 % (0.0-12.0); Neutrophils # (auto) 4.8 10 ^3/uL (1.6-8.6); Neutrophils % (auto) 86.8 % (37.0-80.0); Platelet Count (auto) 77 10^3/uL (140-450); Red Blood Cells 2.96 10^6/uL (4.5-5.90); Red Cell Distribution Width 14.5 % (11.8-14.3); White Blood Cell 5.5 10^3/uL (4.4-10.8)
[2020-07-06] MEDS: SODIUM ZIRCONIUM CYCL 10 GM PAK PO SCH (06:00)
[2020-07-06] MEDS: InsuLIN REG 1unit/0.01ml Soln (100units/ml) SC SCH ×4 (06:00→23:20)
[2020-07-06] MEDS: ACCU-CHEK COMFORT CURVE STRIP VI SCH ×3 (06:00→18:00)
[2020-07-06 06:09] LABS: Potassium 4.6 mmol/L (3.5-5.1)
[2020-07-06 06:17] LABS: BUN/Creatinine Ratio 19.6; Calcium 6.6 mg/dL (8.5-10.1)
[2020-07-06] MEDS: BELLADONNA ALKAL/OPIUM (16.2/30MG) RECT SUPP PR SCH (10:00)
[2020-07-06] MEDS: INSULIN LANTUS (GLARGINE) 1 /0.01ml (100units/ml) SC SCH ×2 (10:03→22:00)
[2020-07-06] MEDS: DexAMETHasone SOD PHOS 10MG/1ML VIAL INJ IV SCH (10:03)
[2020-07-06] MEDS: OSELTAMIVIR 30 MG CAP PO SCH (10:03)
[2020-07-06] MEDS: ASCORBIC ACID 1,000 MG TAB PO SCH (10:03)
[2020-07-06] MEDS: CHOLECALCIFEROL (VITD3) 2,000 UNIT CAP/TAB PO SCH (10:03)
[2020-07-06] MEDS: PROPOFOL 100 ML IV SCH (11:45)
[2020-07-06] MEDS ORDERED: PANTOPRAZOLE 40 MG/10 ML VIAL INJ IV ONE (15:00)
[2020-07-07] VITALS (86 sets, daily range): BP systolic 101–148; BP diastolic 43–66
[2020-07-07] MEDS: SODIUM BICARBONATE 50ML VIAL 150 ML in D5W 5% 1,000 ML IV SCH ×2 (00:52→14:00)
[2020-07-07] MEDS: PROPOFOL 100 ML IV SCH ×3 (04:28→18:34)
[2020-07-07 05:55] LABS: Hematocrit 29.6 % (41.0-53.0); Hemoglobin 10.2 g/dL (13.5-17.5); Mean Corpuscular Hemoglobin 31.4 pg (28.0-32.0); Mean Corpuscular Hgb Conc. 34.4 g/dL (32.0-36.0); Platelet Count (auto) 88 10^3/uL (140-450); Red Blood Cells 3.25 10^6/uL (4.5-5.90); Red Cell Distribution Width 14.7 % (11.8-14.3); White Blood Cell 6.1 10^3/uL (4.4-10.8)
[2020-07-07 06:01] LABS: Potassium 4.2 mmol/L (3.5-5.1)
[2020-07-07 06:06] LABS: BUN/Creatinine Ratio 21.5; Calcium 7.4 mg/dL (8.5-10.1); Magnesium 2.7 mg/dL (1.6-2.6); Phosphorus 4.2 mg/dL (2.5-4.90)
[2020-07-07] MEDS: InsuLIN REG 1unit/0.01ml Soln (100units/ml) SC SCH ×3 (06:15→18:34)
[2020-07-07 06:22] LABS: Basophils % (manual) 0 (0.0-2.0); Blast Cells 0; Promyelocytes % 0; Reactive Lymphocytes 0
[2020-07-07] MEDS: MIDAZOLAM DRIP 50 mg/50mL 50 ML IV SCH ×3 (06:29→15:43)
[2020-07-07] MEDS: ERGOCALCIFEROL 50,000 UNIT(1.25MG) CAP PO SCH (08:00)
[2020-07-07] MEDS: PANTOPRAZOLE 40 MG/10 ML VIAL INJ IV SCH (08:59)
[2020-07-07] MEDS: ASCORBIC ACID 1,000 MG TAB PO SCH (08:59)
[2020-07-07] MEDS: BELLADONNA ALKAL/OPIUM (16.2/30MG) RECT SUPP PR SCH (08:59)
[2020-07-07] MEDS: OSELTAMIVIR 30 MG CAP PO SCH (08:59)
[2020-07-07] MEDS: INSULIN LANTUS (GLARGINE) 1 /0.01ml (100units/ml) SC SCH ×2 (10:00→22:00)
[2020-07-07] MEDS ORDERED: ENOXAPARIN SOD 30 MG/0.3 ML SYRINGE SC SCH (10:00)
[2020-07-07] MEDS: fentaNYL Drip 2500mCg/250mlNS 250 ML IV SCH (10:56)
[2020-07-07] MEDS: ACCU-CHEK COMFORT CURVE STRIP VI SCH ×3 (12:28→17:54)
[2020-07-07 13:06] LABS: Band Neutrophils % (manual) 4; Eosinophils % (manual) 1 (0-7); Lymphocytes % (manual) 6 (10.0-50.0); Metamyelocytes % 1; Monocytes % (manual) 4 (0-12); Myelocytes % 1
[2020-07-07] MEDS ORDERED: SODIUM BICARBONATE 8.4 % INJ 50ML VIAL IV ONE (13:43)
[2020-07-07] MEDS: DAPTOmycin 500 MG in SODIUM CHL 0.9% 50 ML IV SCH (18:00)
[2020-07-08] VITALS (39 sets, daily range): BP systolic 100–139; BP diastolic 45–62
[2020-07-08] MEDS: ACCU-CHEK COMFORT CURVE STRIP VI SCH ×5 (01:25→23:35)
[2020-07-08] MEDS: InsuLIN REG 1unit/0.01ml Soln (100units/ml) SC SCH ×5 (01:30→23:35)
[2020-07-08 05:47] LABS: Basophils # (auto) 0.1 10 ^3/uL (0-0.2); Basophils % (auto) 1.3 % (0.0-2.0); Eosinophils # (auto) 0.3 10 ^3/uL (0-0.8); Eosinophils % (auto) 4.7 % (0.0-7.0); Hematocrit 27.9 % (41.0-53.0); Hemoglobin 9.8 g/dL (13.5-17.5); Lymphocytes # (auto) 0.7 10 ^3/uL (0.4-5.4); Lymphocytes % (auto) 10.9 % (10.0-50.0); Mean Corpuscular Hemoglobin 31.7 pg (28.0-32.0); Mean Corpuscular Volume 90.5 fL (80.0-100.0); Monocytes # (auto) 0.4 10 ^3/uL (0-1.3); Monocytes % (auto) 6.2 % (0.0-12.0); Neutrophils % (auto) 76.9 % (37.0-80.0); Nucleated Red Blood Cells % 0.2 %; Platelet Count (auto) 95 10^3/uL (140-450); Red Blood Cells 3.09 10^6/uL (4.5-5.90); Red Cell Distribution Width 14.4 % (11.8-14.3); White Blood Cell 6.5 10^3/uL (4.4-10.8)
[2020-07-08 06:09] LABS: Calcium 6.9 mg/dL (8.5-10.1); Magnesium 2.4 mg/dL (1.6-2.6); Potassium 3.7 mmol/L (3.5-5.1)
[2020-07-08 06:15] LABS: BUN/Creatinine Ratio 24.7
[2020-07-08] MEDS: PANTOPRAZOLE 40 MG/10 ML VIAL INJ IV SCH (10:00)
[2020-07-08] MEDS: ASCORBIC ACID 1,000 MG TAB PO SCH (10:00)
[2020-07-08] MEDS: BELLADONNA ALKAL/OPIUM (16.2/30MG) RECT SUPP PR SCH (10:00)
[2020-07-08] MEDS: INSULIN LANTUS (GLARGINE) 1 /0.01ml (100units/ml) SC SCH (10:00)
[2020-07-08] MEDS: SODIUM BICARBONATE 50ML VIAL 150 ML in D5W 5% 1,000 ML IV SCH (11:15)
[2020-07-08] MEDS: fentaNYL Drip 2500mCg/250mlNS 250 ML IV SCH (20:00)
[2020-07-08] MEDS ORDERED: INSULIN LANTUS (GLARGINE) 1 /0.01ml (100units/ml) SC SCH (22:00)
[2020-07-09] VITALS (90 sets, daily range): BP systolic 104–165; BP diastolic 48–76
[2020-07-09 05:06] LABS: Basophils # (auto) 0 10 ^3/uL (0-0.2); Basophils % (auto) 0.3 % (0.0-2.0); Eosinophils # (auto) 0.4 10 ^3/uL (0-0.8); Eosinophils % (auto) 5.1 % (0.0-7.0); Hematocrit 27.5 % (41.0-53.0); Hemoglobin 9.7 g/dL (13.5-17.5); Lymphocytes # (auto) 0.7 10 ^3/uL (0.4-5.4); Lymphocytes % (auto) 8.6 % (10.0-50.0); Mean Corpuscular Hemoglobin 32.2 pg (28.0-32.0); Mean Corpuscular Hgb Conc. 35.2 g/dL (32.0-36.0); Mean Corpuscular Volume 91.4 fL (80.0-100.0); Monocytes # (auto) 0.6 10 ^3/uL (0-1.3); Monocytes % (auto) 7.4 % (0.0-12.0); Neutrophils # (auto) 6.1 10 ^3/uL (1.6-8.6); Neutrophils % (auto) 78.6 % (37.0-80.0); Nucleated Red Blood Cells % 0.1 %; Platelet Count (auto) 100 10^3/uL (140-450); Red Blood Cells 3.01 10^6/uL (4.5-5.90); Red Cell Distribution Width 14.9 % (11.8-14.3); White Blood Cell 7.7 10^3/uL (4.4-10.8)
[2020-07-09 05:19] LABS: BUN/Creatinine Ratio 23.3; Calcium 6.9 mg/dL (8.5-10.1)
[2020-07-09] MEDS: InsuLIN REG 1unit/0.01ml Soln (100units/ml) SC SCH ×4 (06:00→23:48)
[2020-07-09] MEDS: ACCU-CHEK COMFORT CURVE STRIP VI SCH ×3 (06:00→23:49)
[2020-07-09] MEDS: PANTOPRAZOLE 40 MG/10 ML VIAL INJ IV SCH (10:00)
[2020-07-09] MEDS: ASCORBIC ACID 1,000 MG TAB PO SCH (10:00)
[2020-07-09] MEDS ORDERED: FUROSEMIDE 20 MG/2 ML VIAL IV ONE (13:00)
[2020-07-09] MEDS: DAPTOmycin 500 MG in SODIUM CHL 0.9% 50 ML IV SCH (18:00)
[2020-07-09] MEDS: fentaNYL Drip 2500mCg/250mlNS 250 ML IV SCH (20:00)
[2020-07-09] MEDS: MIDAZOLAM DRIP 50 mg/50mL 50 ML IV SCH (20:00)
[2020-07-09] MEDS: PROPOFOL 100 ML IV SCH (20:00)
[2020-07-09] MEDS: BELLADONNA ALKAL/OPIUM (16.2/30MG) RECT SUPP PR SCH (20:00)
[2020-07-10] VITALS (92 sets, daily range): BP systolic 113–162; BP diastolic 56–77
[2020-07-10] MEDS: InsuLIN REG 1unit/0.01ml Soln (100units/ml) SC SCH ×3 (05:31→18:01)
[2020-07-10] MEDS: ACCU-CHEK COMFORT CURVE STRIP VI SCH ×3 (05:32→18:09)
[2020-07-10 06:05] LABS: Potassium 3.9 mmol/L (3.5-5.1)
[2020-07-10 06:12] LABS: BUN/Creatinine Ratio 24.3; Calcium 7.3 mg/dL (8.5-10.1)
[2020-07-10] MEDS: BELLADONNA ALKAL/OPIUM (16.2/30MG) RECT SUPP PR SCH (10:00)
[2020-07-10] MEDS: PANTOPRAZOLE 40 MG/10 ML VIAL INJ IV SCH (10:14)
[2020-07-10] MEDS: ASCORBIC ACID 1,000 MG TAB PO SCH (10:14)
[2020-07-10] MEDS: FUROSEMIDE 20 MG/2 ML VIAL IV SCH (10:14)
[2020-07-10] MEDS: PROPOFOL 100 ML IV SCH (11:45)
[2020-07-10] MEDS: fentaNYL Drip 2500mCg/250mlNS 250 ML IV SCH (15:15)
[2020-07-10] MEDS: MIDAZOLAM DRIP 50 mg/50mL 50 ML IV SCH (15:15)
[2020-07-11] VITALS (63 sets, daily range): BP systolic 105–165; BP diastolic 56–98
[2020-07-11] MEDS: InsuLIN REG 1unit/0.01ml Soln (100units/ml) SC SCH ×4 (05:53→18:00)
[2020-07-11] MEDS: ACCU-CHEK COMFORT CURVE STRIP VI SCH ×4 (05:54→18:46)
[2020-07-11 08:53] LABS: Basophils # (auto) 0 10 ^3/uL (0-0.2); Basophils % (auto) 0.3 % (0.0-2.0); Eosinophils # (auto) 0.3 10 ^3/uL (0-0.8); Eosinophils % (auto) 4.1 % (0.0-7.0); Hematocrit 30.9 % (41.0-53.0); Hemoglobin 10.5 g/dL (13.5-17.5); Lymphocytes # (auto) 0.7 10 ^3/uL (0.4-5.4); Lymphocytes % (auto) 8.2 % (10.0-50.0); Mean Corpuscular Volume 91.1 fL (80.0-100.0); Monocytes # (auto) 0.8 10 ^3/uL (0-1.3); Monocytes % (auto) 10.5 % (0.0-12.0); Neutrophils # (auto) 6.1 10 ^3/uL (1.6-8.6); Neutrophils % (auto) 76.9 % (37.0-80.0); Nucleated Red Blood Cells % 0.2 %; Platelet Count (auto) 168 10^3/uL (140-450); Red Blood Cells 3.39 10^6/uL (4.5-5.90); Red Cell Distribution Width 14.7 % (11.8-14.3)
[2020-07-11 08:58] LABS: BUN/Creatinine Ratio 22.4; Calcium 7.4 mg/dL (8.5-10.1); Potassium 3.9 mmol/L (3.5-5.1)
[2020-07-11] MEDS: ASCORBIC ACID 1,000 MG TAB PO SCH (09:45)
[2020-07-11] MEDS: PANTOPRAZOLE 40 MG/10 ML VIAL INJ IV SCH (09:46)
[2020-07-11] MEDS: FUROSEMIDE 20 MG/2 ML VIAL IV SCH (09:46)
[2020-07-11] MEDS ORDERED: FUROSEMIDE 20 MG/2 ML VIAL IV ONE (15:15)
[2020-07-11 18:03] LABS: INR 1.13 (0.9-1.15); Partial Thromboplastin Time 26.4 sec (23.0-31.2)
[2020-07-11] MEDS: DAPTOmycin 500 MG in SODIUM CHL 0.9% 50 ML IV SCH (18:44)
[2020-07-12] VITALS (31 sets, daily range): BP systolic 99–149; BP diastolic 41–74
[2020-07-12 04:42] LABS: Basophils # (auto) 0.1 10 ^3/uL (0-0.2); Basophils % (auto) 1.1 % (0.0-2.0); Eosinophils # (auto) 0.1 10 ^3/uL (0-0.8); Eosinophils % (auto) 1.1 % (0.0-7.0); Hematocrit 29.5 % (41.0-53.0); Hemoglobin 10.3 g/dL (13.5-17.5); Lymphocytes # (auto) 0.9 10 ^3/uL (0.4-5.4); Lymphocytes % (auto) 9.2 % (10.0-50.0); Mean Corpuscular Hemoglobin 31.4 pg (28.0-32.0); Mean Corpuscular Volume 89.8 fL (80.0-100.0); Monocytes % (auto) 10.6 % (0.0-12.0); Neutrophils # (auto) 7.5 10 ^3/uL (1.6-8.6); Platelet Count (auto) 213 10^3/uL (140-450); Red Blood Cells 3.29 10^6/uL (4.5-5.90); Red Cell Distribution Width 14.5 % (11.8-14.3); White Blood Cell 9.6 10^3/uL (4.4-10.8)
[2020-07-12 05:00] LABS: BUN/Creatinine Ratio 22.2; Calcium 7.5 mg/dL (8.5-10.1); Potassium 3.6 mmol/L (3.5-5.1)
[2020-07-12] MEDS: ACCU-CHEK COMFORT CURVE STRIP VI SCH ×5 (05:18→23:44)
[2020-07-12] MEDS: InsuLIN REG 1unit/0.01ml Soln (100units/ml) SC SCH ×5 (05:18→23:44)
[2020-07-12] MEDS: FUROSEMIDE 20 MG/2 ML VIAL IV SCH (09:19)
[2020-07-12] MEDS: ASCORBIC ACID 1,000 MG TAB PO SCH (09:22)
[2020-07-12] MEDS: PANTOPRAZOLE 40 MG/10 ML VIAL INJ IV SCH (09:22)
[2020-07-12] MEDS ORDERED: FUROSEMIDE 20 MG/2 ML VIAL IV ONE (14:15)
[2020-07-12] MEDS ORDERED: LORazepam 2MG/ML-1ML VIAL IV ONE (18:15)
[2020-07-12] MEDS: ALBUTEROL SULF 2.5 MG/0.5ML(0.5%) NEB SOLN NEB PRN (18:20)
[2020-07-13] VITALS (28 sets, daily range): BP systolic 111–161; BP diastolic 37–82
[2020-07-13 05:25] LABS: Basophils # (auto) 0 10 ^3/uL (0-0.2); Basophils % (auto) 0.5 % (0.0-2.0); Eosinophils # (auto) 0.1 10 ^3/uL (0-0.8); Eosinophils % (auto) 0.7 % (0.0-7.0); Hematocrit 26.7 % (41.0-53.0); Hemoglobin 9.2 g/dL (13.5-17.5); Lymphocytes # (auto) 0.7 10 ^3/uL (0.4-5.4); Lymphocytes % (auto) 8.5 % (10.0-50.0); Mean Corpuscular Hemoglobin 31.4 pg (28.0-32.0); Mean Corpuscular Hgb Conc. 34.5 g/dL (32.0-36.0); Mean Corpuscular Volume 91.2 fL (80.0-100.0); Monocytes # (auto) 0.9 10 ^3/uL (0-1.3); Monocytes % (auto) 9.9 % (0.0-12.0); Neutrophils % (auto) 80.4 % (37.0-80.0); Platelet Count (auto) 210 10^3/uL (140-450); Red Blood Cells 2.93 10^6/uL (4.5-5.90); Red Cell Distribution Width 14.5 % (11.8-14.3); White Blood Cell 8.7 10^3/uL (4.4-10.8)
[2020-07-13 05:39] LABS: BUN/Creatinine Ratio 21.9; Calcium 7.5 mg/dL (8.5-10.1); Potassium 3.7 mmol/L (3.5-5.1)
[2020-07-13] MEDS: InsuLIN REG 1unit/0.01ml Soln (100units/ml) SC SCH ×4 (06:00→23:57)
[2020-07-13] MEDS: ACCU-CHEK COMFORT CURVE STRIP VI SCH ×4 (06:00→23:55)
[2020-07-13] MEDS: ALBUTEROL SULF 2.5 MG/0.5ML(0.5%) NEB SOLN NEB PRN ×2 (07:34→10:52)
[2020-07-13] MEDS: FAMOTIDINE (10MG/ML) 2ML VL IV SCH (10:00)
[2020-07-13] MEDS: ASCORBIC ACID 1,000 MG TAB PO SCH (10:00)
[2020-07-13] MEDS: ENOXAPARIN SOD 30 MG/0.3 ML SYRINGE SC SCH (10:00)
[2020-07-13] MEDS: FUROSEMIDE 20 MG/2 ML VIAL IV SCH (10:01)
[2020-07-13] MEDS: DAPTOmycin 500 MG in SODIUM CHL 0.9% 50 ML IV SCH (18:03)
[2020-07-14] VITALS (59 sets, daily range): BP systolic 68–210; BP diastolic 42–112
[2020-07-14] MEDS: ACCU-CHEK COMFORT CURVE STRIP VI SCH ×3 (06:02→17:30)
[2020-07-14] MEDS: InsuLIN REG 1unit/0.01ml Soln (100units/ml) SC SCH ×3 (06:32→17:29)
[2020-07-14] MEDS: ALBUTEROL SULF 2.5 MG/0.5ML(0.5%) NEB SOLN NEB PRN (07:18)
[2020-07-14] MEDS: ERGOCALCIFEROL 50,000 UNIT(1.25MG) CAP PO SCH ×2 (07:56→08:00)
[2020-07-14] MEDS: FUROSEMIDE 20 MG/2 ML VIAL IV SCH (10:15)
[2020-07-14] MEDS: ENOXAPARIN SOD 30 MG/0.3 ML SYRINGE SC SCH (10:20)
[2020-07-14] MEDS: FAMOTIDINE (10MG/ML) 2ML VL IV SCH (10:20)
[2020-07-14] MEDS ORDERED: ROCURONIUM 10MG/ML 10ML VIAL IV ONE (10:27)
[2020-07-14] MEDS ORDERED: ETOMIDATE (2MG/ML) 20ML VIAL IV ONE (10:27)
[2020-07-14] MEDS ORDERED: SUCCINYLCHOLINE CHLORIDE 20 MG/ML 10ML VIAL IV ONE (10:28)
[2020-07-14] MEDS ORDERED: PROPOFOL 100 ML IV ONE (10:29)
[2020-07-14] MEDS: PROPOFOL 100 ML IV SCH ×3 (10:50→21:53)
[2020-07-14] MEDS ORDERED: fentaNYL Drip 2500mCg/250mlNS 250 ML IV ONE (10:57)
[2020-07-14] MEDS: fentaNYL Drip 2500mCg/250mlNS 250 ML IV SCH (11:00)
[2020-07-14] MEDS: MIDAZOLAM DRIP 50 mg/50mL 50 ML IV SCH ×2 (11:15→19:00)
[2020-07-14] MEDS ORDERED: dilTIAZem 25 MG/5 ML VIAL IV ONE (11:29)
[2020-07-14] MEDS ORDERED: ACETAMINOPHEN 650 mg PER 20.3 mL UD GT PRN (11:45)
[2020-07-14 12:29] LABS: INR 1.33 (0.9-1.15); Partial Thromboplastin Time 23.9 sec (23.0-31.2)
[2020-07-14] MEDS: ASPirin 81 mg TAB PO SCH (12:30)
[2020-07-14] MEDS: amLODIPine BESYLATE 5 MG TAB PO SCH (12:30)
[2020-07-14] MEDS: ASCORBIC ACID 1,000 MG TAB PO SCH (12:30)
[2020-07-14 12:35] LABS: Potassium 3.4 mmol/L (3.5-5.1)
[2020-07-14 12:44] LABS: BUN/Creatinine Ratio 18.5; Bilirubin, Total 0.9 mg/dL (0.2-1.0); Calcium 7.7 mg/dL (8.5-10.1); Magnesium 2.1 mg/dL (1.6-2.6); Total Protein 7.2 g/dL (6.4-8.2)
[2020-07-14] MEDS ORDERED: POTASSIUM EFFERVESENT TAB 25 MEQ GT ONE (13:15)
[2020-07-14] MEDS: NOREPINEPHRINE 8 MG/250ML KIT 250 ML IV SCH (17:30)
[2020-07-14] MEDS: DAPTOmycin 500 MG in SODIUM CHL 0.9% 50 ML IV SCH (18:40)
[2020-07-14] MEDS: ATORVASTATIN 20 MG TAB PO SCH (21:53)
[2020-07-14] MEDS: SODIUM CHLOR 0.9% PF (SALINE LOCK) 10ML VIAL/SYR IV SCH (21:53)
[2020-07-15] VITALS (89 sets, daily range): BP systolic 91–134; BP diastolic 42–70
[2020-07-15] MEDS: METOPROLOL TARTRATE 1MG/1ML-5ML VIAL IV PRN ×3 (00:59→02:19)
[2020-07-15] MEDS: PROPOFOL 100 ML IV SCH ×2 (00:59→08:23)
[2020-07-15] MEDS: NOREPINEPHRINE 8 MG/250ML KIT 250 ML IV SCH (05:26)
[2020-07-15] MEDS: MIDAZOLAM DRIP 50 mg/50mL 50 ML IV SCH ×3 (05:27→22:16)
[2020-07-15] MEDS: fentaNYL Drip 2500mCg/250mlNS 250 ML IV SCH ×2 (05:27→19:15)
[2020-07-15] MEDS: InsuLIN REG 1unit/0.01ml Soln (100units/ml) SC SCH ×5 (06:00→23:24)
[2020-07-15] MEDS: ACCU-CHEK COMFORT CURVE STRIP VI SCH ×5 (06:00→23:23)
[2020-07-15] MEDS: amLODIPine BESYLATE 5 MG TAB PO SCH (10:00)
[2020-07-15] MEDS: ENOXAPARIN SOD 30 MG/0.3 ML SYRINGE SC SCH (10:20)
[2020-07-15] MEDS: FAMOTIDINE (10MG/ML) 2ML VL IV SCH (10:20)
[2020-07-15] MEDS: ASCORBIC ACID 1,000 MG TAB PO SCH (10:20)
[2020-07-15] MEDS: SODIUM CHLOR 0.9% PF (SALINE LOCK) 10ML VIAL/SYR IV SCH ×2 (10:21→21:38)
[2020-07-15] MEDS: FUROSEMIDE 20 MG/2 ML VIAL IV SCH (10:21)
[2020-07-15] MEDS: ASPirin 81 mg TAB PO SCH (10:22)
[2020-07-15] MEDS ORDERED: Glucerna 1.2 Cal 1Liter BOTTLE GT SCH (14:15)
[2020-07-15] MEDS ORDERED: PIPERACILLIN-TAZOB 3.375GM 100 ML IV ONE (14:15)
[2020-07-15] MEDS: SODIUM CHLORIDE 0.9% 1,000 ML IV SCH (15:44)
[2020-07-15] MEDS: DAPTOmycin 500 MG in SODIUM CHL 0.9% 50 ML IV SCH (20:31)
[2020-07-15] MEDS: ATORVASTATIN 20 MG TAB PO SCH (21:39)
[2020-07-15] MEDS: PIPERACILLIN-TAZOB 3.375GM 100 ML IV SCH (21:40)
[2020-07-16] VITALS (99 sets, daily range): BP systolic 90–151; BP diastolic 32–66
[2020-07-16] MEDS: PROPOFOL 100 ML IV SCH ×2 (00:33→23:52)
[2020-07-16] MEDS: MIDAZOLAM DRIP 50 mg/50mL 50 ML IV SCH ×5 (02:36→23:51)
[2020-07-16 04:13] LABS: Basophils # (auto) 0.1 10 ^3/uL (0-0.2); Basophils % (auto) 0.7 % (0.0-2.0); Eosinophils # (auto) 0.4 10 ^3/uL (0-0.8); Eosinophils % (auto) 3.7 % (0.0-7.0); Hematocrit 24.8 % (41.0-53.0); Hemoglobin 8.5 g/dL (13.5-17.5); Lymphocytes # (auto) 0.8 10 ^3/uL (0.4-5.4); Lymphocytes % (auto) 8.5 % (10.0-50.0); Mean Corpuscular Hemoglobin 31.7 pg (28.0-32.0); Mean Corpuscular Hgb Conc. 34.4 g/dL (32.0-36.0); Mean Corpuscular Volume 91.9 fL (80.0-100.0); Monocytes # (auto) 0.6 10 ^3/uL (0-1.3); Monocytes % (auto) 5.6 % (0.0-12.0); Neutrophils # (auto) 8.1 10 ^3/uL (1.6-8.6); Neutrophils % (auto) 81.5 % (37.0-80.0); Platelet Count (auto) 174 10^3/uL (140-450); Red Blood Cells 2.69 10^6/uL (4.5-5.90); Red Cell Distribution Width 14.8 % (11.8-14.3); White Blood Cell 9.9 10^3/uL (4.4-10.8)
[2020-07-16 04:44] LABS: Potassium 3.2 mmol/L (3.5-5.1)
[2020-07-16 04:51] LABS: BUN/Creatinine Ratio 13.8; Calcium 6.7 mg/dL (8.5-10.1)
[2020-07-16] MEDS: PIPERACILLIN-TAZOB 3.375GM 100 ML IV SCH ×3 (05:42→21:11)
[2020-07-16] MEDS: ACCU-CHEK COMFORT CURVE STRIP VI SCH ×4 (05:43→23:39)
[2020-07-16] MEDS: InsuLIN REG 1unit/0.01ml Soln (100units/ml) SC SCH ×4 (05:45→23:39)
[2020-07-16] MEDS ORDERED: POTASSIUM CHL 20MEQ/100ML 100 ML IV ONE (05:45)
[2020-07-16] MEDS: SODIUM CHLORIDE 0.9% 1,000 ML IV SCH ×2 (05:46→14:10)
[2020-07-16] MEDS: ALBUTEROL SULF 2.5 MG/0.5ML(0.5%) NEB SOLN NEB PRN (07:22)
[2020-07-16] MEDS: FAMOTIDINE (10MG/ML) 2ML VL IV SCH (09:09)
[2020-07-16] MEDS: ENOXAPARIN SOD 40 MG/0.4 ML SYRINGE SC SCH (09:10)
[2020-07-16] MEDS: SODIUM CHLOR 0.9% PF (SALINE LOCK) 10ML VIAL/SYR IV SCH ×2 (09:10→21:10)
[2020-07-16] MEDS: ASCORBIC ACID 1,000 MG TAB PO SCH (09:10)
[2020-07-16] MEDS: ASPirin 81 mg TAB PO SCH (09:10)
[2020-07-16] MEDS: fentaNYL Drip 2500mCg/250mlNS 250 ML IV SCH (09:16)
[2020-07-16] MEDS: NOREPINEPHRINE 8 MG/250ML KIT 250 ML IV SCH (12:52)
[2020-07-16] MEDS: ATORVASTATIN 20 MG TAB PO SCH (21:11)
[2020-07-17] VITALS (95 sets, daily range): BP systolic 87–180; BP diastolic 29–64
[2020-07-17] MEDS: SODIUM CHLORIDE 0.9% 1,000 ML IV SCH ×2 (02:32→15:55)
[2020-07-17] MEDS: MIDAZOLAM DRIP 50 mg/50mL 50 ML IV SCH ×3 (03:42→20:00)
[2020-07-17] MEDS: PIPERACILLIN-TAZOB 3.375GM 100 ML IV SCH ×3 (05:31→22:00)
[2020-07-17] MEDS: ACCU-CHEK COMFORT CURVE STRIP VI SCH ×3 (05:45→17:25)
[2020-07-17] MEDS: InsuLIN REG 1unit/0.01ml Soln (100units/ml) SC SCH ×3 (05:48→17:22)
[2020-07-17 06:26] LABS: Basophils # (auto) 0.1 10 ^3/uL (0-0.2); Eosinophils # (auto) 0.3 10 ^3/uL (0-0.8); Hemoglobin 8.4 g/dL (13.5-17.5); Lymphocytes # (auto) 0.8 10 ^3/uL (0.4-5.4); Mean Corpuscular Hgb Conc. 34.1 g/dL (32.0-36.0); Monocytes # (auto) 0.4 10 ^3/uL (0-1.3); Neutrophils # (auto) 6.6 10 ^3/uL (1.6-8.6); Red Cell Distribution Width 15.4 % (11.8-14.3); White Blood Cell 8.2 10^3/uL (4.4-10.8)
[2020-07-17 06:29] LABS: Basophils % (auto) 1.4 % (0.0-2.0); Eosinophils % (auto) 3.1 % (0.0-7.0); Hematocrit 24.7 % (41.0-53.0); Lymphocytes % (auto) 9.9 % (10.0-50.0); Mean Corpuscular Hemoglobin 31.8 pg (28.0-32.0); Mean Corpuscular Volume 93.2 fL (80.0-100.0); Monocytes % (auto) 5.4 % (0.0-12.0); Neutrophils % (auto) 80.2 % (37.0-80.0); Platelet Count (auto) 148 10^3/uL (140-450); Red Blood Cells 2.65 10^6/uL (4.5-5.90)
[2020-07-17 06:41] LABS: Albumin 1.3 g/dL (3.4-5.0); Calcium 6.8 mg/dL (8.5-10.1); Potassium 3.7 mmol/L (3.5-5.1)
[2020-07-17 06:44] LABS: BUN/Creatinine Ratio 11.1; Bilirubin, Total 1.4 mg/dL (0.2-1.0); Total Protein 5.7 g/dL (6.4-8.2)
[2020-07-17] MEDS: FAMOTIDINE (10MG/ML) 2ML VL IV SCH (10:07)
[2020-07-17] MEDS: SODIUM CHLOR 0.9% PF (SALINE LOCK) 10ML VIAL/SYR IV SCH ×2 (10:07→22:00)
[2020-07-17] MEDS: ASCORBIC ACID 1,000 MG TAB PO SCH (10:08)
[2020-07-17] MEDS: ASPirin 81 mg TAB PO SCH (10:08)
[2020-07-17] MEDS: ENOXAPARIN SOD 40 MG/0.4 ML SYRINGE SC SCH (10:08)
[2020-07-17] MEDS: fentaNYL Drip 2500mCg/250mlNS 250 ML IV SCH (10:13)
[2020-07-17] MEDS: NOREPINEPHRINE 8 MG/250ML KIT 250 ML IV SCH (17:00)
[2020-07-17] MEDS ORDERED: DAPTOmycin 500 MG in SODIUM CHL 0.9% 50 ML IV SCH (18:00)
[2020-07-17] MEDS: PROPOFOL 100 ML IV SCH ×2 (18:35→22:50)
[2020-07-17] MEDS: LINEZOLID 600MG/300ML 300 ML IV SCH (22:00)
[2020-07-17] MEDS: ATORVASTATIN 20 MG TAB PO SCH (22:00)
[2020-07-18] VITALS (98 sets, daily range): BP systolic 84–145; BP diastolic 37–61
[2020-07-18] MEDS: ACCU-CHEK COMFORT CURVE STRIP VI SCH ×4 (00:08→18:03)
[2020-07-18] MEDS: InsuLIN REG 1unit/0.01ml Soln (100units/ml) SC SCH ×4 (00:09→17:54)
[2020-07-18] MEDS: MIDAZOLAM DRIP 50 mg/50mL 50 ML IV SCH ×2 (02:52→20:30)
[2020-07-18] MEDS: PROPOFOL 100 ML IV SCH ×3 (04:30→20:30)
[2020-07-18 04:36] LABS: Basophils # (auto) 0 10 ^3/uL (0-0.2); Eosinophils # (auto) 0.2 10 ^3/uL (0-0.8); Hemoglobin 7.8 g/dL (13.5-17.5); Lymphocytes # (auto) 0.6 10 ^3/uL (0.4-5.4); Mean Corpuscular Hgb Conc. 34.5 g/dL (32.0-36.0); Monocytes # (auto) 0.4 10 ^3/uL (0-1.3); Neutrophils # (auto) 6.5 10 ^3/uL (1.6-8.6); White Blood Cell 7.8 10^3/uL (4.4-10.8)
[2020-07-18 04:38] LABS: Basophils % (auto) 0.4 % (0.0-2.0); Eosinophils % (auto) 2.6 % (0.0-7.0); Hematocrit 22.5 % (41.0-53.0); Lymphocytes % (auto) 8.1 % (10.0-50.0); Mean Corpuscular Hemoglobin 31.6 pg (28.0-32.0); Mean Corpuscular Volume 91.6 fL (80.0-100.0); Monocytes % (auto) 5.4 % (0.0-12.0); Neutrophils % (auto) 83.5 % (37.0-80.0); Platelet Count (auto) 116 10^3/uL (140-450); Red Blood Cells 2.45 10^6/uL (4.5-5.90); Red Cell Distribution Width 15.1 % (11.8-14.3)
[2020-07-18 04:47] LABS: Calcium 6.7 mg/dL (8.5-10.1); Potassium 3.8 mmol/L (3.5-5.1)
[2020-07-18 04:49] LABS: BUN/Creatinine Ratio 10.4
[2020-07-18] MEDS: NOREPINEPHRINE 8 MG/250ML KIT 250 ML IV SCH (05:00)
[2020-07-18] MEDS: SODIUM CHLORIDE 0.9% 1,000 ML IV SCH (05:15)
[2020-07-18] MEDS: PIPERACILLIN-TAZOB 3.375GM 100 ML IV SCH ×3 (05:53→22:24)
[2020-07-18] MEDS: SODIUM CHLOR 0.9% PF (SALINE LOCK) 10ML VIAL/SYR IV SCH ×2 (10:00→22:24)
[2020-07-18] MEDS: ENOXAPARIN SOD 40 MG/0.4 ML SYRINGE SC SCH (10:00)
[2020-07-18] MEDS: FAMOTIDINE (10MG/ML) 2ML VL IV SCH (10:09)
[2020-07-18] MEDS: LINEZOLID 600MG/300ML 300 ML IV SCH ×2 (10:11→22:24)
[2020-07-18] MEDS: ASPirin 81 mg TAB PO SCH (10:11)
[2020-07-18] MEDS: ASCORBIC ACID 500 MG TAB PO SCH (10:12)
[2020-07-18] MEDS: fentaNYL Drip 2500mCg/250mlNS 250 ML IV SCH ×2 (11:15→20:30)
[2020-07-18] MEDS ORDERED: TPN PER PHARMACY 0 ML IV SCH (15:15)
[2020-07-18] MEDS ORDERED: DEXTROSE (50%) 50ML SYRG IV SCH (20:00)
[2020-07-18] MEDS: AMINO ACID INFUSION IN D10W 1,000 ML IV NR (20:00)
[2020-07-18] MEDS: METOCLOPRAMIDE HCL 5MG/ml INJ 2ml VIAL IV SCH (22:24)
[2020-07-18] MEDS: ALBUTEROL SULF 2.5 MG/0.5ML(0.5%) NEB SOLN NEB PRN (22:44)
[2020-07-19] VITALS (100 sets, daily range): BP systolic 86–160; BP diastolic 35–59
[2020-07-19] MEDS: NOREPINEPHRINE 8 MG/250ML KIT 250 ML IV SCH (05:00)
[2020-07-19 05:12] LABS: Hemoglobin 7.5 g/dL (13.5-17.5)
[2020-07-19 05:17] LABS: Hematocrit 22.3 % (41.0-53.0); Mean Corpuscular Hemoglobin 31.5 pg (28.0-32.0); Mean Corpuscular Hgb Conc. 33.7 g/dL (32.0-36.0); Mean Corpuscular Volume 93.7 fL (80.0-100.0); Platelet Count (auto) 112 10^3/uL (140-450); Red Blood Cells 2.38 10^6/uL (4.5-5.90); Red Cell Distribution Width 15.9 % (11.8-14.3); White Blood Cell 8.7 10^3/uL (4.4-10.8)
[2020-07-19 05:38] LABS: Potassium 4.4 mmol/L (3.5-5.1)
[2020-07-19] MEDS: ACCU-CHEK COMFORT CURVE STRIP VI SCH ×4 (05:43→18:07)
[2020-07-19] MEDS: METOCLOPRAMIDE HCL 5MG/ml INJ 2ml VIAL IV SCH ×3 (05:43→22:08)
[2020-07-19] MEDS: PIPERACILLIN-TAZOB 3.375GM 100 ML IV SCH ×3 (05:43→22:09)
[2020-07-19] MEDS: InsuLIN REG 1unit/0.01ml Soln (100units/ml) SC SCH ×4 (05:44→18:08)
[2020-07-19 05:46] LABS: Basophils % (manual) 0 (0.0-2.0); Blast Cells 0; Myelocytes % 0; Promyelocytes % 0; Reactive Lymphocytes 0
[2020-07-19 06:39] LABS: Albumin 1.1 g/dL (3.4-5.0); BUN/Creatinine Ratio 9.8; Bilirubin, Total 0.8 mg/dL (0.2-1.0); Calcium 6.3 mg/dL (8.5-10.1); Magnesium 1.7 mg/dL (1.6-2.6); Phosphorus 4.8 mg/dL (2.5-4.90); Pre Albumin 5.2 mg/dL (20.0-40.0); Total Protein 5.3 g/dL (6.4-8.2)
[2020-07-19] MEDS: ALBUTEROL SULF 2.5 MG/0.5ML(0.5%) NEB SOLN NEB PRN (06:46)
[2020-07-19] MEDS: PROPOFOL 100 ML IV SCH ×2 (07:00→19:41)
[2020-07-19 07:53] LABS: Band Neutrophils % (manual) 3; Eosinophils % (manual) 1 (0-7); Lymphocytes % (manual) 7 (10.0-50.0); Metamyelocytes % 1; Monocytes % (manual) 4 (0-12)
[2020-07-19] MEDS ORDERED: SODIUM BICARBONATE 50ML VIAL 50 ML in SOD CHL 0.45% 1,000 ML IV SCH (09:15)
[2020-07-19] MEDS: ASCORBIC ACID 500 MG TAB PO SCH (09:31)
[2020-07-19] MEDS: LINEZOLID 600MG/300ML 300 ML IV SCH ×2 (09:31→22:09)
[2020-07-19] MEDS: FAMOTIDINE (10MG/ML) 2ML VL IV SCH (09:31)
[2020-07-19] MEDS: SODIUM CHLOR 0.9% PF (SALINE LOCK) 10ML VIAL/SYR IV SCH ×2 (09:31→22:08)
[2020-07-19] MEDS: ASPirin 81 mg TAB PO SCH (09:32)
[2020-07-19] MEDS ORDERED: FAMOTIDINE (10MG/ML) 2ML VL IV SCH (10:00)
[2020-07-19] MEDS ORDERED: MIDAZOLAM DRIP 50 mg/50mL 50 ML IV ONE ×2 (10:41→15:16)
[2020-07-19] MEDS: MIDAZOLAM DRIP 50 mg/50mL 50 ML IV SCH ×3 (15:33→23:00)
[2020-07-19] MEDS ORDERED: SODIUM BICARBONATE 50ML VIAL 150 ML in D5W 5% 1,000 ML IV ONE (15:45)
[2020-07-19 18:15] LABS: INR 1.16 (0.9-1.15); Partial Thromboplastin Time 27.2 sec (23.0-31.2)
[2020-07-19] MEDS: fentaNYL Drip 2500mCg/250mlNS 250 ML IV SCH (19:40)
[2020-07-19] MEDS ORDERED: CALCIUM GLUC IV NR ×7 (20:00)
[2020-07-19] MEDS ORDERED: SODIUM ACETATE IV NR ×7 (20:00)
[2020-07-19] MEDS ORDERED: [UNRECOGNIZED DRUG - OTHER] IV NR ×7 (20:00)
[2020-07-20] VITALS (93 sets, daily range): BP systolic 81–144; BP diastolic 33–63
[2020-07-20 04:43] LABS: White Blood Cell 7.6 10^3/uL (4.4-10.8)
[2020-07-20 04:45] LABS: Hematocrit 21.6 % (41.0-53.0); Hemoglobin 7.5 g/dL (13.5-17.5); Mean Corpuscular Hemoglobin 32.8 pg (28.0-32.0); Mean Corpuscular Hgb Conc. 34.7 g/dL (32.0-36.0); Mean Corpuscular Volume 94.4 fL (80.0-100.0); Platelet Count (auto) 106 10^3/uL (140-450); Red Blood Cells 2.29 10^6/uL (4.5-5.90); Red Cell Distribution Width 15.9 % (11.8-14.3)
[2020-07-20 04:50] LABS: Albumin 1.1 g/dL (3.4-5.0); Calcium 6.2 mg/dL (8.5-10.1); Magnesium 1.5 mg/dL (1.6-2.6); Potassium 3.7 mmol/L (3.5-5.1)
[2020-07-20 04:53] LABS: BUN/Creatinine Ratio 9.7; Bilirubin, Total 0.8 mg/dL (0.2-1.0); Phosphorus 3.8 mg/dL (2.5-4.90); Total Protein 5.2 g/dL (6.4-8.2)
[2020-07-20 04:56] LABS: Basophils % (manual) 0 (0.0-2.0); Blast Cells 0; Promyelocytes % 0; Reactive Lymphocytes 0
[2020-07-20] MEDS: MIDAZOLAM DRIP 50 mg/50mL 50 ML IV SCH ×2 (05:30→20:00)
[2020-07-20] MEDS: fentaNYL Drip 2500mCg/250mlNS 250 ML IV SCH (05:30)
[2020-07-20] MEDS: PROPOFOL 100 ML IV SCH (05:30)
[2020-07-20 05:32] LABS: Band Neutrophils % (manual) 9; Eosinophils % (manual) 6 (0-7); Lymphocytes % (manual) 10 (10.0-50.0); Metamyelocytes % 1; Monocytes % (manual) 1 (0-12); Myelocytes % 3
[2020-07-20] MEDS: METOCLOPRAMIDE HCL 5MG/ml INJ 2ml VIAL IV SCH ×3 (05:37→22:21)
[2020-07-20] MEDS: PIPERACILLIN-TAZOB 3.375GM 100 ML IV SCH ×3 (05:37→22:21)
[2020-07-20] MEDS: InsuLIN REG 1unit/0.01ml Soln (100units/ml) SC SCH ×4 (06:00→17:47)
[2020-07-20] MEDS: ACCU-CHEK COMFORT CURVE STRIP VI SCH ×4 (06:26→17:44)
[2020-07-20] MEDS ORDERED: CALCIUM GLUC IV NR ×14 (09:15→20:00)
[2020-07-20] MEDS ORDERED: [UNRECOGNIZED DRUG - OTHER] IV NR ×7 (09:15)
[2020-07-20] MEDS ORDERED: SODIUM ACETATE IV NR ×14 (09:15→20:00)
[2020-07-20] MEDS ORDERED: MAGNESIUM SULFATE 1GM/100ML 100 ML IV ONE (10:00)
[2020-07-20] MEDS: SODIUM CHLOR 0.9% PF (SALINE LOCK) 10ML VIAL/SYR IV SCH ×2 (10:07→22:21)
[2020-07-20] MEDS: FAMOTIDINE (10MG/ML) 2ML VL IV SCH (10:07)
[2020-07-20] MEDS: ASCORBIC ACID 500 MG TAB PO SCH (10:07)
[2020-07-20] MEDS: LINEZOLID 600MG/300ML 300 ML IV SCH ×2 (10:07→22:21)
[2020-07-20] MEDS: ASPirin 81 mg TAB PO SCH (10:07)
[2020-07-20] MEDS ORDERED: BUMETANIDE 2.5mg/10ml (0.25 mg/ml) INJ IV ONE (11:15)
[2020-07-20] MEDS ORDERED: SODIUM BICARBONATE 8.4 % INJ 50ML VIAL IV ONE (11:15)
[2020-07-20] MEDS: AMINO ACID INFUSION IN D10W 1,000 ML IV NR (16:21)
[2020-07-20] MEDS: NOREPINEPHRINE 8 MG/250ML KIT 250 ML IV SCH (17:55)
[2020-07-20] MEDS: ALBUTEROL SULF 2.5 MG/0.5ML(0.5%) NEB SOLN NEB PRN (19:30)
[2020-07-20] MEDS ORDERED: [UNRECOGNIZED DRUG - OTHER] IV NR ×7 (20:00)
[2020-07-20] MEDS ORDERED: POTASSIUM CHLORIDE IV NR ×7 (20:00)
[2020-07-20] MEDS: INSULIN LANTUS (GLARGINE) 1 /0.01ml (100units/ml) SC SCH (22:00)
[2020-07-21] VITALS (75 sets, daily range): BP systolic 66–137; BP diastolic 35–60
[2020-07-21] MEDS: MIDAZOLAM DRIP 50 mg/50mL 50 ML IV SCH ×5 (01:14→22:00)
[2020-07-21 06:15] LABS: Hemoglobin 7.8 g/dL (13.5-17.5)
[2020-07-21 06:19] LABS: Mean Corpuscular Hemoglobin 31.9 pg (28.0-32.0); Mean Corpuscular Volume 93.9 fL (80.0-100.0); Platelet Count (auto) 131 10^3/uL (140-450); Red Blood Cells 2.45 10^6/uL (4.5-5.90); White Blood Cell 8.8 10^3/uL (4.4-10.8)
[2020-07-21] MEDS: METOCLOPRAMIDE HCL 5MG/ml INJ 2ml VIAL IV SCH ×3 (06:23→22:00)
[2020-07-21] MEDS: PIPERACILLIN-TAZOB 3.375GM 100 ML IV SCH ×3 (06:24→22:00)
[2020-07-21] MEDS: ACCU-CHEK COMFORT CURVE STRIP VI SCH ×4 (06:24→18:27)
[2020-07-21] MEDS: InsuLIN REG 1unit/0.01ml Soln (100units/ml) SC SCH ×4 (06:26→18:27)
[2020-07-21] MEDS: INSULIN LANTUS (GLARGINE) 1 /0.01ml (100units/ml) SC SCH ×2 (06:26→22:00)
[2020-07-21 06:27] LABS: Basophils % (manual) 0 (0.0-2.0); Blast Cells 0; Metamyelocytes % 0; Promyelocytes % 0; Reactive Lymphocytes 0
[2020-07-21 06:32] LABS: Potassium 3.6 mmol/L (3.5-5.1)
[2020-07-21 06:38] LABS: BUN/Creatinine Ratio 9.1; Bilirubin, Total 0.7 mg/dL (0.2-1.0); Calcium 6.1 mg/dL (8.5-10.1); Magnesium 1.6 mg/dL (1.6-2.6); Phosphorus 4.1 mg/dL (2.5-4.90); Total Protein 5.6 g/dL (6.4-8.2)
[2020-07-21] MEDS: PROPOFOL 100 ML IV SCH ×5 (08:25→23:00)
[2020-07-21] MEDS: NOREPINEPHRINE 8 MG/250ML KIT 250 ML IV SCH ×2 (09:27→17:30)
[2020-07-21] MEDS: LINEZOLID 600MG/300ML 300 ML IV SCH ×2 (09:57→22:00)
[2020-07-21] MEDS: ASPirin 81 mg TAB PO SCH (09:57)
[2020-07-21] MEDS: FAMOTIDINE (10MG/ML) 2ML VL IV SCH (09:57)
[2020-07-21] MEDS: SODIUM CHLOR 0.9% PF (SALINE LOCK) 10ML VIAL/SYR IV SCH ×2 (09:57→22:00)
[2020-07-21] MEDS: ASCORBIC ACID 500 MG TAB PO SCH (09:57)
[2020-07-21] MEDS: ERGOCALCIFEROL 50,000 UNIT(1.25MG) CAP PO SCH (10:00)
[2020-07-21 12:26] LABS: Eosinophils % (manual) 3 (0-7); Lymphocytes % (manual) 12 (10.0-50.0); Monocytes % (manual) 5 (0-12); Myelocytes % 1
[2020-07-21 12:27] LABS: Band Neutrophils % (manual) 13
[2020-07-21] MEDS ORDERED: SODIUM BICARBONATE 8.4 % INJ 50ML VIAL IV ONE (13:30)
[2020-07-21] MEDS ORDERED: TPN PER PHARMACY IV NR ×9 (20:00)
[2020-07-22] VITALS (98 sets, daily range): BP systolic 77–148; BP diastolic 42–62
[2020-07-22] MEDS: PROPOFOL 100 ML IV SCH ×5 (02:49→20:50)
[2020-07-22] MEDS: MIDAZOLAM DRIP 50 mg/50mL 50 ML IV SCH ×4 (02:51→20:50)
[2020-07-22] MEDS: fentaNYL Drip 2500mCg/250mlNS 250 ML IV SCH ×2 (05:11→18:00)
[2020-07-22 05:21] LABS: Calcium 6.5 mg/dL (8.5-10.1); Potassium 3.4 mmol/L (3.5-5.1)
[2020-07-22 05:27] LABS: BUN/Creatinine Ratio 9.7; Bilirubin, Total 0.8 mg/dL (0.2-1.0); Phosphorus 3.2 mg/dL (2.5-4.90); Total Protein 5.7 g/dL (6.4-8.2)
[2020-07-22 05:33] LABS: Albumin 0.9 g/dL (3.4-5.0)
[2020-07-22] MEDS: ACCU-CHEK COMFORT CURVE STRIP VI SCH ×5 (06:00→23:53)
[2020-07-22] MEDS: PIPERACILLIN-TAZOB 3.375GM 100 ML IV SCH ×3 (06:00→21:42)
[2020-07-22] MEDS: METOCLOPRAMIDE HCL 5MG/ml INJ 2ml VIAL IV SCH ×3 (06:00→21:42)
[2020-07-22] MEDS: InsuLIN REG 1unit/0.01ml Soln (100units/ml) SC SCH ×5 (06:00→23:51)
[2020-07-22] MEDS: FAMOTIDINE (10MG/ML) 2ML VL IV SCH (10:00)
[2020-07-22] MEDS: ASCORBIC ACID 500 MG TAB PO SCH (10:00)
[2020-07-22] MEDS: SODIUM CHLOR 0.9% PF (SALINE LOCK) 10ML VIAL/SYR IV SCH ×2 (10:00→21:42)
[2020-07-22] MEDS: ASPirin 81 mg TAB PO SCH (10:00)
[2020-07-22] MEDS: LINEZOLID 600MG/300ML 300 ML IV SCH ×2 (10:00→21:42)
[2020-07-22] MEDS: POTASSIUM CHL 20MEQ/100ML 100 ML IV SCH ×2 (10:30→12:45)
[2020-07-22] MEDS: INSULIN LANTUS (GLARGINE) 1 /0.01ml (100units/ml) SC SCH ×2 (12:00→21:42)
[2020-07-22] MEDS ORDERED: BUMETANIDE 2.5mg/10ml (0.25 mg/ml) INJ IV ONE (12:00)
[2020-07-22] MEDS: NOREPINEPHRINE 8 MG/250ML KIT 250 ML IV SCH ×2 (12:15→20:50)
[2020-07-22] MEDS ORDERED: TPN PER PHARMACY IV NR ×11 (20:00)
[2020-07-23] VITALS (106 sets, daily range): BP systolic 97–144; BP diastolic 43–65
[2020-07-23 04:45] LABS: Red Cell Distribution Width 16.5 % (11.8-14.3); White Blood Cell 10.7 10^3/uL (4.4-10.8)
[2020-07-23 04:49] LABS: Hematocrit 22.1 % (41.0-53.0); Hemoglobin 7.6 g/dL (13.5-17.5); Mean Corpuscular Hemoglobin 31.8 pg (28.0-32.0); Mean Corpuscular Hgb Conc. 34.5 g/dL (32.0-36.0); Mean Corpuscular Volume 92.2 fL (80.0-100.0); Platelet Count (auto) 152 10^3/uL (140-450)
[2020-07-23 05:12] LABS: Calcium 6.6 mg/dL (8.5-10.1); Magnesium 2.2 mg/dL (1.6-2.6); Potassium 4.6 mmol/L (3.5-5.1)
[2020-07-23 05:17] LABS: Basophils % (manual) 0 (0.0-2.0); Blast Cells 0; Promyelocytes % 0; Reactive Lymphocytes 0; Total Protein 5.8 g/dL (6.4-8.2)
[2020-07-23] MEDS: InsuLIN REG 1unit/0.01ml Soln (100units/ml) SC SCH ×4 (05:35→23:43)
[2020-07-23] MEDS: PIPERACILLIN-TAZOB 3.375GM 100 ML IV SCH (05:37)
[2020-07-23] MEDS: ACCU-CHEK COMFORT CURVE STRIP VI SCH ×4 (05:37→23:43)
[2020-07-23] MEDS: METOCLOPRAMIDE HCL 5MG/ml INJ 2ml VIAL IV SCH ×3 (05:38→22:00)
[2020-07-23] MEDS: fentaNYL Drip 2500mCg/250mlNS 250 ML IV SCH ×2 (06:05→08:15)
[2020-07-23] MEDS: INSULIN LANTUS (GLARGINE) 1 /0.01ml (100units/ml) SC SCH ×2 (07:00→22:00)
[2020-07-23] MEDS: MIDAZOLAM DRIP 50 mg/50mL 50 ML IV SCH ×3 (08:00→17:44)
[2020-07-23 08:58] LABS: Band Neutrophils % (manual) 7; Eosinophils % (manual) 3 (0-7); Lymphocytes % (manual) 6 (10.0-50.0); Metamyelocytes % 4; Monocytes % (manual) 6 (0-12); Myelocytes % 4
[2020-07-23] MEDS ORDERED: SODIUM BICARBONATE 50ML VIAL 150 ML in D5W 5% 1,000 ML IV SCH (09:15)
[2020-07-23] MEDS: SODIUM CHLOR 0.9% PF (SALINE LOCK) 10ML VIAL/SYR IV SCH ×2 (09:58→22:00)
[2020-07-23] MEDS: FAMOTIDINE (10MG/ML) 2ML VL IV SCH (09:58)
[2020-07-23] MEDS: ASPirin 81 mg TAB PO SCH (09:59)
[2020-07-23] MEDS: LINEZOLID 600MG/300ML 300 ML IV SCH ×2 (10:14→22:00)
[2020-07-23] MEDS: ALBUTEROL SULF 2.5 MG/0.5ML(0.5%) NEB SOLN NEB PRN ×2 (10:18→22:25)
[2020-07-23] MEDS ORDERED: HEPARIN 1,000 UNITS/ml 1ML VIAL IV ONE (10:45)
[2020-07-23] MEDS ORDERED: HEPARIN SODIUM (PORCINE) 5000 UNITS/ML 1ML VIAL ONE (10:51)
[2020-07-23] MEDS ORDERED: SODIUM CHL 0.9% 1000 ML BAG XX ONE (12:00)
[2020-07-23] MEDS: PROPOFOL 100 ML IV SCH ×2 (12:00→17:44)
[2020-07-23] MEDS: NOREPINEPHRINE 8 MG/250ML KIT 250 ML IV SCH (15:00)
[2020-07-23] MEDS: PIPERACILLIN-TAZOB 2.25GM 50 ML IV SCH ×2 (17:39→23:44)
[2020-07-23] MEDS: TPN PER PHARMACY IV NR ×8 (20:00)
[2020-07-23] MEDS ORDERED: EPOETIN ALFA 10,000 UNIT/1 ML VIAL SC ONE (21:00)
[2020-07-24] VITALS (102 sets, daily range): BP systolic 109–146; BP diastolic 48–64
[2020-07-24 04:33] LABS: Calcium 6.5 mg/dL (8.5-10.1); Magnesium 2.3 mg/dL (1.6-2.6); Potassium 4.2 mmol/L (3.5-5.1)
[2020-07-24 04:38] LABS: BUN/Creatinine Ratio 9.2; Bilirubin, Total 0.8 mg/dL (0.2-1.0); Phosphorus 2.6 mg/dL (2.5-4.90); Total Protein 5.6 g/dL (6.4-8.2)
[2020-07-24 04:56] LABS: Red Blood Cells 2.21 10^6/uL (4.5-5.90)
[2020-07-24 04:59] LABS: Hematocrit 20.2 % (41.0-53.0); Hemoglobin 7.1 g/dL (13.5-17.5); Mean Corpuscular Volume 91.3 fL (80.0-100.0); Platelet Count (auto) 139 10^3/uL (140-450); Red Cell Distribution Width 16.2 % (11.8-14.3); White Blood Cell 10.5 10^3/uL (4.4-10.8)
[2020-07-24 05:03] LABS: Basophils % (manual) 0 (0.0-2.0); Blast Cells 0; Myelocytes % 0; Promyelocytes % 0; Reactive Lymphocytes 0
[2020-07-24] MEDS: PIPERACILLIN-TAZOB 2.25GM 50 ML IV SCH ×3 (05:52→18:00)
[2020-07-24] MEDS: METOCLOPRAMIDE HCL 5MG/ml INJ 2ml VIAL IV SCH ×3 (05:52→22:00)
[2020-07-24] MEDS: ACCU-CHEK COMFORT CURVE STRIP VI SCH ×3 (05:53→17:19)
[2020-07-24] MEDS: InsuLIN REG 1unit/0.01ml Soln (100units/ml) SC SCH ×3 (05:53→17:18)
[2020-07-24 06:16] LABS: Band Neutrophils % (manual) 23; Eosinophils % (manual) 5 (0-7); Lymphocytes % (manual) 20 (10.0-50.0); Metamyelocytes % 3; Monocytes % (manual) 4 (0-12)
[2020-07-24] MEDS: INSULIN LANTUS (GLARGINE) 1 /0.01ml (100units/ml) SC SCH ×2 (08:00→22:00)
[2020-07-24] MEDS: NOREPINEPHRINE 8 MG/250ML KIT 250 ML IV SCH ×2 (08:00→17:20)
[2020-07-24] MEDS: SODIUM CHLOR 0.9% PF (SALINE LOCK) 10ML VIAL/SYR IV SCH ×2 (09:34→22:00)
[2020-07-24] MEDS: FAMOTIDINE (10MG/ML) 2ML VL IV SCH (09:34)
[2020-07-24] MEDS: LINEZOLID 600MG/300ML 300 ML IV SCH ×2 (09:34→22:00)
[2020-07-24] MEDS: ASPirin 81 mg TAB PO SCH (09:38)
[2020-07-24] MEDS: PROPOFOL 100 ML IV SCH ×2 (09:44→22:18)
[2020-07-24] MEDS: fentaNYL Drip 2500mCg/250mlNS 250 ML IV SCH (11:15)
[2020-07-24] MEDS: MIDAZOLAM DRIP 50 mg/50mL 50 ML IV SCH (12:01)
[2020-07-24] MEDS ORDERED: SODIUM BICARBONATE 8.4 % INJ 50ML VIAL IV ONE (14:15)
[2020-07-24] MEDS ORDERED: BUMETANIDE 2.5mg/10ml (0.25 mg/ml) INJ IV ONE (14:15)
[2020-07-24] MEDS ORDERED: OSELTAMIVIR 30MG/5ML ORAL SUSP GT ONE (14:30)
[2020-07-24] MEDS: TPN PER PHARMACY IV NR ×18 (19:15→20:00)
[2020-07-24] MEDS: OSELTAMIVIR 30MG/5ML ORAL SUSP GT SCH (22:00)
[2020-07-24] MEDS: ALBUTEROL SULF 2.5 MG/0.5ML(0.5%) NEB SOLN NEB PRN (22:46)
[2020-07-25] VITALS (88 sets, daily range): BP systolic 80–148; BP diastolic 35–78
[2020-07-25] MEDS: PIPERACILLIN-TAZOB 2.25GM 50 ML IV SCH ×4 (00:18→18:25)
[2020-07-25] MEDS: ACCU-CHEK COMFORT CURVE STRIP VI SCH ×4 (00:18→18:25)
[2020-07-25] MEDS: MIDAZOLAM DRIP 50 mg/50mL 50 ML IV SCH ×3 (00:34→17:39)
[2020-07-25 04:52] LABS: Red Cell Distribution Width 16.1 % (11.8-14.3); White Blood Cell 10.3 10^3/uL (4.4-10.8)
[2020-07-25 04:55] LABS: Hematocrit 18.3 % (41.0-53.0); Mean Corpuscular Hemoglobin 32.3 pg (28.0-32.0); Mean Corpuscular Hgb Conc. 35.3 g/dL (32.0-36.0); Mean Corpuscular Volume 91.4 fL (80.0-100.0); Platelet Count (auto) 123 10^3/uL (140-450); Red Blood Cells 2.01 10^6/uL (4.5-5.90)
[2020-07-25 05:03] LABS: Potassium 4.4 mmol/L (3.5-5.1)
[2020-07-25] MEDS: PROPOFOL 100 ML IV SCH (05:08)
[2020-07-25 05:16] LABS: BUN/Creatinine Ratio 9.7; Bilirubin, Total 0.6 mg/dL (0.2-1.0); Calcium 6.6 mg/dL (8.5-10.1); Magnesium 2.3 mg/dL (1.6-2.6); Phosphorus 3.5 mg/dL (2.5-4.90); Total Protein 5.7 g/dL (6.4-8.2)
[2020-07-25 05:17] LABS: % Iron Saturation 84.5 % (20-55)
[2020-07-25 05:27] LABS: Hemoglobin 6.5 g/dL (13.5-17.5)
[2020-07-25 05:28] LABS: Basophils % (manual) 0 (0.0-2.0); Blast Cells 0; Promyelocytes % 0; Reactive Lymphocytes 0
[2020-07-25] MEDS: METOCLOPRAMIDE HCL 5MG/ml INJ 2ml VIAL IV SCH ×3 (05:58→21:04)
[2020-07-25] MEDS: InsuLIN REG 1unit/0.01ml Soln (100units/ml) SC SCH ×4 (05:58→18:00)
[2020-07-25] MEDS: INSULIN LANTUS (GLARGINE) 1 /0.01ml (100units/ml) SC SCH ×2 (05:59→21:04)
[2020-07-25] MEDS: NOREPINEPHRINE 8 MG/250ML KIT 250 ML IV SCH (06:17)
[2020-07-25 06:46] LABS: Band Neutrophils % (manual) 10; Eosinophils % (manual) 5 (0-7); Lymphocytes % (manual) 18 (10.0-50.0); Metamyelocytes % 1; Monocytes % (manual) 10 (0-12); Myelocytes % 2
[2020-07-25] MEDS ORDERED: SODIUM CHL 0.9% 1000 ML BAG XX ONE (07:00)
[2020-07-25] MEDS: FAMOTIDINE (10MG/ML) 2ML VL IV SCH (10:00)
[2020-07-25] MEDS: ASPirin 81 mg TAB PO SCH (10:00)
[2020-07-25] MEDS: SODIUM CHLOR 0.9% PF (SALINE LOCK) 10ML VIAL/SYR IV SCH ×2 (10:00→21:04)
[2020-07-25] MEDS: OSELTAMIVIR 30MG/5ML ORAL SUSP GT SCH ×2 (10:00→21:04)
[2020-07-25] MEDS: LINEZOLID 600MG/300ML 300 ML IV SCH ×2 (10:00→21:04)
[2020-07-25] MEDS: fentaNYL Drip 2500mCg/250mlNS 250 ML IV SCH (11:15)
[2020-07-25 12:15] LABS: Hepatitis A Ab IgM Negative; Hepatitis B Core IgM Negative; Hepatitis B Surface Antigen Negative (Negative); Hepatitis C Antibody Negative (Negative)
[2020-07-25] MEDS: TPN PER PHARMACY IV NR ×19 (20:10→20:11)
[2020-07-25] MEDS ORDERED: EPOETIN ALFA 10,000 UNIT/1 ML VIAL SC ONE (21:00)
[2020-07-26] VITALS (79 sets, daily range): BP systolic 92–130; BP diastolic 47–60
[2020-07-26] MEDS: ACCU-CHEK COMFORT CURVE STRIP VI SCH ×4 (00:04→17:57)
[2020-07-26] MEDS: fentaNYL Drip 2500mCg/250mlNS 250 ML IV SCH ×2 (00:13→16:12)
[2020-07-26] MEDS: PIPERACILLIN-TAZOB 2.25GM 50 ML IV SCH ×5 (00:13→23:48)
[2020-07-26] MEDS: METOCLOPRAMIDE HCL 5MG/ml INJ 2ml VIAL IV SCH ×3 (05:55→22:03)
[2020-07-26] MEDS: InsuLIN REG 1unit/0.01ml Soln (100units/ml) SC SCH ×4 (05:56→17:57)
[2020-07-26] MEDS: INSULIN LANTUS (GLARGINE) 1 /0.01ml (100units/ml) SC SCH ×2 (05:57→22:00)
[2020-07-26 06:34] LABS: Hemoglobin 7.3 g/dL (13.5-17.5); Red Cell Distribution Width 15.9 % (11.8-14.3)
[2020-07-26 06:37] LABS: Hematocrit 21.4 % (41.0-53.0); Mean Corpuscular Hemoglobin 31.2 pg (28.0-32.0); Mean Corpuscular Volume 91.8 fL (80.0-100.0); Platelet Count (auto) 120 10^3/uL (140-450); Red Blood Cells 2.33 10^6/uL (4.5-5.90); White Blood Cell 12.8 10^3/uL (4.4-10.8)
[2020-07-26 06:40] LABS: Basophils % (manual) 0 (0.0-2.0); Blast Cells 0; Metamyelocytes % 0; Myelocytes % 0; Promyelocytes % 0; Reactive Lymphocytes 0
[2020-07-26 06:52] LABS: Potassium 4.9 mmol/L (3.5-5.1)
[2020-07-26 07:00] LABS: Albumin 1.2 g/dL (3.4-5.0); BUN/Creatinine Ratio 10.8; Bilirubin, Total 0.6 mg/dL (0.2-1.0); Calcium 6.9 mg/dL (8.5-10.1); Magnesium 2.6 mg/dL (1.6-2.6); Phosphorus 4.2 mg/dL (2.5-4.90); Total Protein 6.3 g/dL (6.4-8.2)
[2020-07-26 08:25] LABS: Band Neutrophils % (manual) 10; Eosinophils % (manual) 3 (0-7); Lymphocytes % (manual) 14 (10.0-50.0); Monocytes % (manual) 6 (0-12)
[2020-07-26] MEDS: OSELTAMIVIR 30MG/5ML ORAL SUSP GT SCH ×2 (09:34→22:03)
[2020-07-26] MEDS: FAMOTIDINE (10MG/ML) 2ML VL IV SCH (09:34)
[2020-07-26] MEDS: SODIUM CHLOR 0.9% PF (SALINE LOCK) 10ML VIAL/SYR IV SCH ×2 (09:34→22:03)
[2020-07-26] MEDS: PROPOFOL 100 ML IV SCH (09:35)
[2020-07-26] MEDS: LINEZOLID 600MG/300ML 300 ML IV SCH ×2 (09:35→22:03)
[2020-07-26] MEDS: NOREPINEPHRINE 8 MG/250ML KIT 250 ML IV SCH (17:00)
[2020-07-26] MEDS: MIDAZOLAM DRIP 50 mg/50mL 50 ML IV SCH (19:30)
[2020-07-26] MEDS: TPN PER PHARMACY IV NR ×9 (19:59)
[2020-07-26] MEDS ORDERED: TPN PER PHARMACY IV NR ×7 (20:00)
[2020-07-27] VITALS (48 sets, daily range): BP systolic 110–146; BP diastolic 47–66
[2020-07-27] MEDS: MIDAZOLAM DRIP 50 mg/50mL 50 ML IV SCH (04:21)
[2020-07-27] MEDS: fentaNYL Drip 2500mCg/250mlNS 250 ML IV SCH (05:04)
[2020-07-27] MEDS: ACCU-CHEK COMFORT CURVE STRIP VI SCH ×3 (06:00→12:15)
[2020-07-27] MEDS: InsuLIN REG 1unit/0.01ml Soln (100units/ml) SC SCH ×3 (06:00→12:00)
[2020-07-27] MEDS: PIPERACILLIN-TAZOB 2.25GM 50 ML IV SCH ×2 (06:00→12:15)
[2020-07-27] MEDS: METOCLOPRAMIDE HCL 5MG/ml INJ 2ml VIAL IV SCH ×2 (06:00→14:02)
[2020-07-27] MEDS ORDERED: SODIUM CHL 0.9% 1000 ML BAG XX ONE (06:15)
[2020-07-27] MEDS: INSULIN LANTUS (GLARGINE) 1 /0.01ml (100units/ml) SC SCH (06:47)
[2020-07-27 08:06] LABS: Potassium 4.5 mmol/L (3.5-5.1)
[2020-07-27 08:12] LABS: Albumin 1.2 g/dL (3.4-5.0); BUN/Creatinine Ratio 11.6; Bilirubin, Total 0.5 mg/dL (0.2-1.0); Calcium 7.1 mg/dL (8.5-10.1); Magnesium 2.5 mg/dL (1.6-2.6); Phosphorus 3.5 mg/dL (2.5-4.90); Pre Albumin 12.8 mg/dL (20.0-40.0); Total Protein 6.1 g/dL (6.4-8.2)
[2020-07-27] MEDS: FAMOTIDINE (10MG/ML) 2ML VL IV SCH (10:06)
[2020-07-27] MEDS: OSELTAMIVIR 30MG/5ML ORAL SUSP GT SCH (10:07)
[2020-07-27] MEDS: LINEZOLID 600MG/300ML 300 ML IV SCH (10:07)
[2020-07-27] MEDS: SODIUM CHLOR 0.9% PF (SALINE LOCK) 10ML VIAL/SYR IV SCH (10:07)
[2020-07-27] MEDS: PROPOFOL 100 ML IV SCH (11:15)
[2020-07-27] MEDS ORDERED: LORazepam 2MG/ML-1ML VIAL IV PRN (13:45)
[2020-07-27] MEDS ORDERED: MORPHINE SULF INJ 2 MG/ML SYRINGE 1ML IV PRN (13:45)
[2020-07-27] MEDS ORDERED: TPN PER PHARMACY IV NR ×11 (20:00)
[2020-07-27] MEDS ORDERED: EPOETIN ALFA 10,000 UNIT/1 ML VIAL SC ONE (21:00)
== END 2020-07-27 17:24 | DRG 853 ==
LOC: EDBD 13:53 → ER 13:53 → TELE 13:54 → ICU WEST 07-03 19:42
PROVIDERS: ADMIT Nurse Practitioner Acute Care; ATTEND Internal Medicine
PROC: 5A1955Z Respiratory Ventilation, Greater than 96 Consecutive Hours (ICD-10-PCS; principal; 2020-07-01)
PROC: 0BH17EZ Insertion of Endotracheal Airway into Trachea, Via Natural or Artificial Opening (ICD-10-PCS; 2020-07-01)
PROC: 06HY33Z Insertion of Infusion Device into Lower Vein, Percutaneous Approach (ICD-10-PCS; 2020-07-01)
PROC: 0TBD8ZZ Excision of Urethra, Via Natural or Artificial Opening Endoscopic (ICD-10-PCS; 2020-07-03)
PROC: 0TCB8ZZ Extirpation of Matter from Bladder, Via Natural or Artificial Opening Endoscopic (ICD-10-PCS; 2020-07-03)
PROC: 05HB33Z Insertion of Infusion Device into Right Basilic Vein, Percutaneous Approach (ICD-10-PCS; 2020-07-12)
PROC: B54MZZA Ultrasonography of Right Upper Extremity Veins, Guidance (ICD-10-PCS; 2020-07-12)
PROC: 0BH17EZ Insertion of Endotracheal Airway into Trachea, Via Natural or Artificial Opening (ICD-10-PCS; 2020-07-14)
PROC: 02HV33Z Insertion of Infusion Device into Superior Vena Cava, Percutaneous Approach (ICD-10-PCS; 2020-07-14)
PROC: 5A1955Z Respiratory Ventilation, Greater than 96 Consecutive Hours (ICD-10-PCS; 2020-07-14)
PROC: 02HV33Z Insertion of Infusion Device into Superior Vena Cava, Percutaneous Approach (ICD-10-PCS; 2020-07-19)
PROC: B54BZZA Ultrasonography of Right Lower Extremity Veins, Guidance (ICD-10-PCS; 2020-07-23)
PROC: 06HM33Z Insertion of Infusion Device into Right Femoral Vein, Percutaneous Approach (ICD-10-PCS; 2020-07-23)
PROC: 5A1D70Z Performance of Urinary Filtration, Intermittent, Less than 6 Hours Per Day (ICD-10-PCS; 2020-07-25)
PROC: 30233N1 Transfusion of Nonautologous Red Blood Cells into Peripheral Vein, Percutaneous Approach (ICD-10-PCS; 2020-07-25)
PROC: 5A1D70Z Performance of Urinary Filtration, Intermittent, Less than 6 Hours Per Day (ICD-10-PCS; 2020-07-27)
DX: A41.81 Sepsis due to Enterococcus (principal); J96.01 Acute respiratory failure with hypoxia; N17.0 Acute kidney failure with tubular necrosis; R65.21 Severe sepsis with septic shock; E11.10 Type 2 diabetes mellitus with ketoacidosis without coma; J10.00 Influenza due to other identified influenza virus with unspecified type of pneumonia; Z99.11 Dependence on respirator [ventilator] status; D68.9 Coagulation defect, unspecified; I48.19 Other persistent atrial fibrillation; Z16.21 Resistance to vancomycin; Z66 Do not resuscitate; Z51.5 Encounter for palliative care; R79.82 Elevated C-reactive protein (CRP); E66.9 Obesity, unspecified; E55.9 Vitamin D deficiency, unspecified; D69.6 Thrombocytopenia, unspecified; E87.5 Hyperkalemia; N40.0 Benign prostatic hyperplasia without lower urinary tract symptoms; N18.32 Chronic kidney disease, stage 3b; E86.0 Dehydration; I12.9 Hypertensive chronic kidney disease with stage 1 through stage 4 chronic kidney disease, or unspecified chronic kidney disease; E78.5 Hyperlipidemia, unspecified; G47.00 Insomnia, unspecified; N32.89 Other specified disorders of bladder; N40.1 Benign prostatic hyperplasia with lower urinary tract symptoms; R31.0 Gross hematuria; D64.9 Anemia, unspecified; E87.6 Hypokalemia; I25.10 Atherosclerotic heart disease of native coronary artery without angina pectoris; Z68.38 Body mass index [BMI] 38.0-38.9, adult; Z79.899 Other long term (current) drug therapy; Z86.16 Personal history of COVID-19
CPT/HCPCS: 31500; 36415; 36556; 36569; 36600; 51702; 71045; 74018; 74176; 76775; 80048; 80053; 80074; 81001; 82040; 82728; 82805; 82962; 83540; 83550; 83605; 83735; 83880; 84100; 84154; 84478; 84484; 85007; 85014; 85018; 85025; 85027; 85379; 85610; 85730; 86141; 86850; 86900; 86901; 86920; 87040; 87070; 87077; 87081; 87086; 87186; 87205; 87426; 87804; 90935; 92610; 93306; 93970; 94002; 94003; 94640; 94667; 94668; 96365; 96375; 97110; 99291; C9113; G0378; G9035; J0330; J0610; J0885; J1100; J1642; J1815; J1956; J2250; J2543; J2704; J3480; J3490; J7060; J7131